=== PATIENT | male | born 1955 | race Hispanic/Latino ===

== ENCOUNTER 2017-07-12 06:55 | Inpatient (IN) | payer BC ==
[2017-07-08 10:55] VITALS: BMI 42.0
[2017-07-12 08:14] LABS: HEMATOCRIT 41.8 % (35.0-51.0); MEAN CELL VOLUME 93.2 fl (80.0-94.0); MEAN CORPUSCULAR HGB CONC 33.3 g/dL (33.0-37.0); RED CELL DISTRIBUTION WIDTH 14.3 % (11.5-14.5); WHITE BLOOD COUNT 7.5 K/uL (4.8-10.8)
[2017-07-12] MEDS ORDERED: Sodium Chloride 0.9% 20 ML IV ONE (08:21)
[2017-07-12] MEDS ORDERED: Thrombin Topical 5,000 IU Spray Kit ONE (08:21)
[2017-07-12] MEDS ORDERED: Absorbable Gelatin Sponge Size 100 ONE (08:21)
[2017-07-12 08:25] LABS: BLOOD UREA NITROGEN 22 mg/dl (9-20); CALCIUM 9.4 mg/dL (8.4-10.2); CARBON DIOXIDE 24 mmol/L (22-30); CHLORIDE 106 mmol/L (98-107); GFR AFRICAN-AMERICAN > 60; GLUCOSE,RANDOM 112 mg/dL (75-110); POTASSIUM 3.4 MMOL/L (3.6-5.0); SODIUM 143 mmol/l (132-148)
[2017-07-12] MEDS ORDERED: Propofol 10 mg/ml Inj (20 ML) ONE (08:39)
[2017-07-12] MEDS ORDERED: Etomidate 20 mg/10ml Inj IV ONE (08:40)
[2017-07-12] MEDS ORDERED: ePHEDrine 50 mg/ml Inj ONE (08:40)
[2017-07-12] MEDS ORDERED: Rocuronium 10 mg/ml (5 ml) ONE ×2 (08:40→10:25)
[2017-07-12] MEDS ORDERED: Midazolam 2 MG/2 ML VIAL ONE ×2 (08:40→09:53)
[2017-07-12] MEDS ORDERED: Succinylcholine 200 mg/10 ml Inj IV ONE (08:40)
[2017-07-12] MEDS ORDERED: Phenylephrine 10 mg/ml Inj ONE (08:40)
[2017-07-12 08:46] LABS: PARTIAL THROMBOPLASTIN TIME 30.5 Seconds (25.6-37.1)
[2017-07-12] MEDS ORDERED: Lactated Ringer's 1,000 ML IV ONE ×2 (09:00→11:40)
[2017-07-12] MEDS ORDERED: Morphine 1 mg/ml preservative-free Inj(Duramorph) ONE (09:14)
[2017-07-12] MEDS ORDERED: Sodium Chloride 0.9% 1,000 ML IV ONE ×3 (09:40→11:30)
[2017-07-12] MEDS ORDERED: Sodium Chloride 0.9% 500 ML IV ONE (09:40)
[2017-07-12] MEDS ORDERED: Sodium Chloride 0.9% 200 ML IV ONE (09:45)
[2017-07-12] MEDS ORDERED: Bacitracin 50,000 UNIT in SODIUM CHLORIDE 3,000 ML IR ONE (10:40)
[2017-07-12] MEDS: Bupivacaine 0.5% Inj(30mL) ONE ×2 (10:54→12:25)
[2017-07-12] MEDS: Morphine 1 mg/ml preservative-free Inj(Duramorph) ONE ×2 (10:55→12:25)
[2017-07-12] MEDS: EPINEPHrine 1 mg/ml (1:1000) Inj ONE ×2 (10:56→12:25)
[2017-07-12] MEDS ORDERED: Sodium Chloride 0.9% Inj (10mL) IV ONE ×2 (10:58→12:25)
[2017-07-12] MEDS ORDERED: Neostigmine Methylsulfate 2 MG/2 ML ML IV ONE (12:10)
[2017-07-12] MEDS ORDERED: Neostigmine Methylsulfate 3mg/3ml Syringe IV ONE (12:10)
--- NOTE | 2017-07-12 12:19 | PCM.SURG1 ---
<Alex Houston - Last Filed: 07/12/17 12:17> Surgeon's Initial Post Op Note - Surgeon's Notes Surgeon: Gaye Gandhi MD Hog Killer: Alex Houston PA-C; Ester Moscoso PA-C; Dr. Ga Beck Type of Anesthesia: General Endo Pre-Operative Diagnosis: Right hip severe osteoarthritis Operative Findings: see op report Post-Operative Diagnosis: same as pre-op dx Operation Performed: Right robotic assisted total hip replacement Specimen/Specimens Removed: right hip femoral head and soft tissue Estimated Blood Loss: EBL {In ML}: 350 Drains Used: Hemovac Date of Surgery/Procedure: 07/12/17 Time of Surgery/Procedure: 10:00 <Gaye Gandhi - Last Filed: 07/12/17 13:47> Surgeon's Initial Post Op Note - Surgeon's Notes Hog Killer: Dr. Sandra Beck
[2017-07-12] MEDS ORDERED: Albuterol 0.083% Inhal Sol (2.5 mg/3 mL) UD ONE (13:09)
[2017-07-12] MEDS ORDERED: Lactated Ringer's 1,000 ML IV SCH (13:30)
--- NOTE | 2017-07-12 16:06 | RAD ---
PROCEDURE: Right Hip with pelvis Radiographs. HISTORY: s/p RTHR COMPARISON: None. FINDINGS: BONES: A status post right total hip replacement with adequate positioning of prosthetic devices at the acetabular and proximal femoral regions. No fracture. JOINTS: Status post complete THR. SOFT TISSUES: Normal. OTHER FINDINGS: None. IMPRESSION: Status post right shoulder replacement. No dislocation or fracture appreciable.
[2017-07-12 17:43] LABS: BASO % 0.3 % (0.0-2.0); EOS # 0.1 K/uL (0.0-0.7); EOS % 0.4 % (0.0-4.0); HEMATOCRIT 38.7 % (35.0-51.0); LYMPH % 6.7 % (20.0-40.0); MEAN CELL VOLUME 94.2 fl (80.0-94.0); MEAN CORPUSCULAR HEMOGLOBIN 31.1 pg (27.0-31.0); MEAN CORPUSCULAR HGB CONC 33.1 g/dL (33.0-37.0); MEAN PLATELET VOLUME 8.6 fl (7.2-11.7); MONO # 1.1 K/uL (0.0-0.8); MONO % 7.3 % (0.0-10.0); NEUT # 12.6 K/uL (1.8-7.0); NEUT % 85.3 % (50.0-75.0); PLATELET COUNT 171 K/uL (130-400); RED CELL DISTRIBUTION WIDTH 14.6 % (11.5-14.5); WHITE BLOOD COUNT 14.8 K/uL (4.8-10.8)
[2017-07-12] MEDS ORDERED: ceFAZolin 1 GM in Sodium Chloride 0.9% 100 ML IVPB ONE (17:45)
[2017-07-12 19:11] LABS: NEUTROPHIL 81 % (42-75); TOTAL CELLS COUNTED 100
[2017-07-13] MEDS ORDERED: ceFAZolin 1 GM in Sodium Chloride 0.9% 100 ML IVPB ONE (01:45)
--- NOTE | 2017-07-13 04:17 | OP ---
OPERATION DATE: 07/12/2017 ATTENDING PHYSICIAN: Gaye Gandhi MD COURTESY BOOTH CASHIER: Sandra Beck MD. PREOPERATIVE DIAGNOSIS: Right hip osteoarthritis. POSTOPERATIVE DIAGNOSIS: Right hip osteoarthritis. PROCEDURE: Right total hip replacement. IMPLANTS: Merlyn 54 mm cup, size 4 high offset stem, 36 mm ceramic head with minus 5 neck length, a 10 degree lateralized polyethylene liner. ESTIMATED BLOOD LOSS: 300 mL. TYPE OF ANESTHESIA: General and spinal. COMPLICATIONS: None. HISTORY: The patient is a 62-year-old male with long standing history of right total hip replacement. He had failed the extensive conservative management. His x-ray had shown advanced osteoarthritis. After the failure of extensive conservative management, I had offered the patient an treatment option of total hip replacement. I reviewed the risk and benefits of the surgery with the patient in detail. The risk includes, but not limited to bleeding, infection, nerve vessel damage, continuous pain, blood loss, instability, dislocation, iatrogenic fracture, blood clots, need for further surgery, and even . The patient fully understood the risks and benefits and opted to proceed. He underwent necessary preoperative medical workup. Once medically cleared, he was scheduled for the procedure. DESCRIPTION OF PROCEDURE: On the day of the surgery, the patient was admitted to preoperative holding area. A laterality sheet was completed, confirming correct operative site. An informed consent was signed from the patient and the correct operative hip was marked. Afterwards, the patient was brought into the operating room table. He underwent general anesthesia. Afterwards, the patient was placed on a operating room table in lateral decubitus position. All the bony prominences were well padded and an axillary roll was also placed. The hip was draped and prepped in the standard sterile manner. Timeout was completed, confirming correct operative site. We proceeded with robotic assisted total hip replacement. Two pins were placed in the iliac crest to attach the antenna. Afterwards, we utilized a standard posterolateral approach. Using a #10 blade, a skin incision was made. The soft tissue dissection was taken down until the IT band fascia was identified and the IT band fascia was incised along with fibers. Next, the lead cast was structured and a short external rotator was exposed and the short external rotator was taken down along with the capsule and preserved for a later repair. Next, an additional checkpoint was placed on the greater trochanter and on top of the acetabular roof. Afterwards, the hip was dislocated. The proposed neck cut was made and the femur was broached to the templated preoperative plan. Next, the acetabulum was exposed. All the soft tissue, degenerative labrum, and the pulvinar was excised. Using the checkpoint, multiple checkpoints were registered to the robot for robotic-assisted reaming and cup placement. After the checkpoint was completed, a 54-mm reamer was used to ream the socket until the medial wall and afterwards using the robot, the 54-mm cup was placed along with one screw. The polyethylene liner was secured. Next, we broached the femoral canal into the appropriate size, a size 4 trial was found to be appropriate fit for this patient with high offset. A -5 femoral head was secured. The hip was reduced and taken to do the range of motion, was stable throughout the entire range of motion without impingement. Next, the hip was dislocated. The trial implants were removed from the femoral canal and a size 4 stem along with a 36 mm with -5 head was secured. The hip was reduced. Once again, taken to do the range of motion was found to be stable without any instability and leg length was also found to be appropriate. Finally, the wound was copiously irrigated. All the loose bodies were removed. The short external rotator were closed with two drill holes at the greater trochanter using pulse lavage solution. The wound was copiously irrigated. All the loose bodies were removed. Dr. Beck had assisted with the closure since the patient was obese and high risk for infection. The deep fascia was closed using #2 Monocryl sutures. Skin edges were brought together using 0 Vicryl and 2-0 Vicryl and skin was closed using Monocryl. Steri-Strip was applied. Sterile dressing was applied. The patient was extubated. He was transferred to the stretcher taken to the recovery room. He was placed in abduction pillow with posterior hip precautions and there were no complications of surgery. Dr. Sandra Beck is a board certified plastic surgeon who was present for the case. He assisted in patient's positioning, retraction of critical neurovascular structure and also along with complex closure. Gaye Gandhi MD [facility] # [id number] MTDD
[2017-07-13] MEDS ORDERED: Sodium Chloride 0.9% 1,000 ML IV SCH (04:45)
[2017-07-13 07:23] LABS: BASO % 0.4 % (0.0-2.0); EOS % 0.4 % (0.0-4.0); HEMATOCRIT 34.5 % (35.0-51.0); LYMPH # 1.1 K/uL (1.0-4.3); MEAN CELL VOLUME 94.1 fl (80.0-94.0); MEAN CORPUSCULAR HEMOGLOBIN 31.1 pg (27.0-31.0); MEAN PLATELET VOLUME 8.6 fl (7.2-11.7); MONO # 0.8 K/uL (0.0-0.8); MONO % 9.8 % (0.0-10.0); NEUT # 6.4 K/uL (1.8-7.0); NEUT % 76.4 % (50.0-75.0); RED CELL DISTRIBUTION WIDTH 14.2 % (11.5-14.5); WHITE BLOOD COUNT 8.4 K/uL (4.8-10.8)
[2017-07-13 07:33] LABS: CALCIUM 7.9 mg/dL (8.4-10.2); POTASSIUM 3.8 MMOL/L (3.6-5.0)
--- NOTE | 2017-07-13 08:56 | CP.PCM.PN ---
Subjective - Date & Time of Evaluation Date of Evaluation: 07/13/17 Time of Evaluation: 08:30 - Subjective Subjective: S/P Right robotic assisted total hip replacement Pt seen and examined at bedside, comfortable in bed Pt denies any current right hip pain, well controlled with pain meds Pt states he was able to urinate this am Pt denies any SOB, chest pain, N/V/D, numbness/tingling to RLE Objective - Vital Signs/Intake and Output Vital Signs (last 24 hours): Temp Pulse Resp BP Pulse Ox 98.6 F 87 18 120/79 94 L 07/13/17 08:15 07/13/17 08:15 07/13/17 08:15 07/13/17 08:15 07/13/17 08:15 Intake and Output: 07/13/17 07/13/17 06:59 18:59 Intake Total 2300 Output Total 500 Balance 1800 - Medications Medications: Current Medications Acetaminophen (Tylenol 325mg Tab) 325 mg PO Q4 PRN PRN Reason: pain1-3 Allopurinol (Zyloprim) 300 mg PO DAILY [facility] Alprazolam (Xanax) 0.5 mg PO Q8 PRN PRN Reason: Anxiety Last Admin: 07/13/17 00:00 Dose: 0.5 mg Celecoxib (Celebrex) 200 mg PO Q12 [facility] Last Admin: 07/12/17 21:55 Dose: 200 mg Hydromorphone HCl (Dilaudid) 0.5 mg IVP Q4 PRN PRN Reason: Pain, severe (8-10) Lactated Ringer's (Lactated Ringer's) 1,000 mls @ 80 mls/hr IV .[id number] [facility] Stop: 07/13/17 09:00 Sodium Chloride (Sodium Chloride 0.9%) 1,000 mls @ 999 mls/hr IV .Q1H1M [facility] Stop: 07/14/17 04:39 Last Admin: 07/13/17 05:10 Dose: 999 mls/hr Losartan Potassium (Cozaar) 100 mg PO DAILY [facility] Meperidine HCl (Demerol) 12.5 mg IVP Q5M PRN PRN Reason: Pain, severe (8-10) Metoprolol Tartrate (Lopressor) 50 mg PO Q12 [facility] Last Admin: 07/12/17 21:55 Dose: 50 mg Ondansetron HCl (Zofran Inj) 4 mg IVP Q6 PRN PRN Reason: Nausea/Vomiting Rivaroxaban (Xarelto) 20 mg PO QD5 [facility] PRN Reason: Protocol Rivaroxaban (Xarelto) 20 mg PO QD5 [facility] PRN Reason: Protocol Tamsulosin HCl (Flomax) 0.4 mg PO DAILY [facility] Tramadol HCl (Ultram) 50 mg PO Q4 PRN PRN Reason: pain4-6 - Labs Labs: 07/13/17 05:30 07/13/17 05:30 PT 10.6 Seconds (9.8-13.1) 07/12/17 08:05 INR 1.0 (0.9-1.2) 07/12/17 08:05 APTT 30.5 Seconds (25.6-37.1) 07/12/17 08:05 - Constitutional Appears: Well, No Acute Distress - Respiratory Exam Respiratory Exam: Clear to Ausculation Bilateral, NORMAL BREATHING PATTERN - Extremities Exam Additional comments: RLE: Hip dressing C/I, saturated proximally Hip abduction pillow in place Calves soft and nontender b/l Normal ROM at ankle Distal pulses wnl Assessment and Plan - Assessment and Plan (Free Text) Assessment: 62 yo M s/p right robotic assisted total hip replacement Plan: S/P right robotic assisted total hip replacement Abx to be stopped within 24hrs post op Pain Control DVT ppx- start xarelto today Incentive Spirometer Dressing to be changed today, change prn F/U labs Continue current management Discussed with Dr. Gandhi
--- NOTE | 2017-07-13 09:12 | CP.PCM.HP ---
History of Present Illness - History of Present Illness History of Present Illness: pt admitted s/p r hip replacement. no f/c, n/v/d. urinated this am. pain controlled. distal pms intact. no numbness/tingling. h/o htn, doing well on meds. Present on Admission - Present on Admission Any Indicators Present on Admission: No Review of Systems - Musculoskeletal Musculoskeletal: As Per HPI, Arthralgias Past Patient History - Past Medical History & Family History Past Medical History?: Yes - Past Social History Smoking Status: Former Smoker - CARDIAC Hx Cardiac Disorders: Yes Hx Hypercholesterolemia: Yes Hx Hypertension: Yes - PULMONARY Hx Respiratory Disorders: No - NEUROLOGICAL Hx Neurological Disorder: No - HEENT Hx HEENT Problems: No - RENAL Hx Chronic Kidney Disease: Yes Other/Comment: RIGHT KIDNEY STONE - ENDOCRINE/METABOLIC Hx Endocrine Disorders: No - HEMATOLOGICAL/ONCOLOGICAL Hx Blood Disorders: Yes Hx Bruising: Yes - INTEGUMENTARY Hx Dermatological Problems: No - MUSCULOSKELETAL/RHEUMATOLOGICAL Hx Musculoskeletal Disorders: Yes Hx Arthritis: Yes Hx Falls: No Hx Gout: Yes Other/Comment: LIMITED JOINT MOTION - GASTROINTESTINAL Hx Gastrointestinal Disorders: No - GENITOURINARY/GYNECOLOGICAL Hx Bladder Stone: Yes (RIGHT KIDNEY STONE) - PSYCHIATRIC Hx Psychophysiologic Disorder: No - SURGICAL HISTORY Hx Surgeries: Yes Hx Arthroscopy: Yes (RIGHT KNEE ARTHROSCOPY) Hx Orthopedic Surgery: Yes (rt knee 2 days ago) - ANESTHESIA Hx Anesthesia: Yes Hx Anesthesia Reactions: No Hx Malignant Hyperthermia: No Has any member of the family had a problem w/ anesthesia?: No Meds Allergies/Adverse Reactions: Allergies Allergy/AdvReac Type Severity Reaction Status Date / Time codeine Allergy RASH Verified 07/08/17 10:55 Physical Exam - Constitutional Appears: Well, Non-toxic, No Acute Distress - Head Exam Head Exam: ATRAUMATIC, NORMAL INSPECTION, NORMOCEPHALIC - Eye Exam Eye Exam: EOMI, Normal appearance, PERRL Pupil Exam: NORMAL ACCOMODATION, PERRL - ENT Exam ENT Exam: Mucous Membranes Moist, Normal Exam - Neck Exam Neck exam: Positive for: Normal Inspection - Respiratory Exam Respiratory Exam: Clear to Auscultation Bilateral, NORMAL BREATHING PATTERN - Cardiovascular Exam Cardiovascular Exam: REGULAR RHYTHM, RRR, +S1, +S2 - GI/Abdominal Exam GI & Abdominal Exam: Normal Bowel Sounds, Soft. absent: Tenderness - Extremities Exam Extremities exam: Positive for: full ROM, normal capillary refill, normal inspection, pedal pulses present - Back Exam Back exam: NORMAL INSPECTION - Neurological Exam Neurological exam: Alert, CN II-XII Intact, Normal Gait, Oriented x3, Reflexes Normal - Psychiatric Exam Psychiatric exam: Normal Affect, Normal Mood - Skin Skin Exam: Dry, Intact, Normal Color, Warm Results - Vital Signs Recent Vital Signs: Last Vital Signs Temp 98.6 F 07/13/17 08:15 Pulse 87 07/13/17 08:15 Resp 18 07/13/17 08:15 BP 120/79 07/13/17 08:15 Pulse Ox 94 L 07/13/17 08:15 - Labs Result Diagrams: 07/13/17 05:30 07/13/17 05:30 Labs: Laboratory Results - last 24 hr 07/12/17 07/12/17 07/12/17 07:30 09:00 17:24 WBC 14.8 H D RBC 4.11 L Hgb 12.8 Hct 38.7 MCV 94.2 H MCH 31.1 H MCHC 33.1 RDW 14.6 H Plt Count 171 MPV 8.6 Neut % (Auto) 85.3 H Lymph % (Auto) 6.7 L [place] % (Auto) 7.3 Eos % (Auto) 0.4 Baso % (Auto) 0.3 Neut # 12.6 H Lymph # 1.0 [place] # 1.1 H Eos # 0.1 Baso # 0.0 Neutrophils % (Manual) 81 H Band Neutrophils % 2 Lymphocytes % (Manual) 9 L Monocytes % (Manual) 8 Platelet Estimate Normal Hypochromasia (manual) Slight Sodium Potassium Chloride Carbon Dioxide Anion Gap BUN Creatinine Est GFR ( Amer) Est GFR (Non-Af Amer) Random Glucose Calcium Blood Type O POSITIVE Blood Type Confirm O POSITIVE Antibody Screen Negative Crossmatch See Detail BBK History Checked No verified bt 07/13/17 07/13/17 05:30 05:30 WBC 8.4 RBC 3.66 L Hgb 11.4 L Hct 34.5 L MCV 94.1 H MCH 31.1 H MCHC 33.0 RDW 14.2 Plt Count 174 MPV 8.6 Neut % (Auto) 76.4 H Lymph % (Auto) 13.0 L [place] % (Auto) 9.8 Eos % (Auto) 0.4 Baso % (Auto) 0.4 Neut # 6.4 Lymph # 1.1 [place] # 0.8 Eos # 0.0 Baso # 0.0 Neutrophils % (Manual) Band Neutrophils % Lymphocytes % (Manual) Monocytes % (Manual) Platelet Estimate Hypochromasia (manual) Sodium 135 Potassium 3.8 Chloride 104 Carbon Dioxide 22 Anion Gap 13 BUN 27 H Creatinine 1.5 Est GFR ( Amer) 57 Est GFR (Non-Af Amer) 47 Random Glucose 93 Calcium 7.9 L Blood Type Blood Type Confirm Antibody Screen Crossmatch BBK History Checked Assessment & Plan (1) Osteoarthritis of right hip Assessment and Plan: s/p tkr pain control pt/ot ortho emanuel Status: Acute (2) DVT prophylaxis Assessment and Plan: xarelto ambulation scd sarai e hose Status: Acute (3) HTN (hypertension) Assessment and Plan: home meds Status: Acute Decision To Admit - Pt Status Changed To: Hospital Disposition Of: Inpatient - Admit Certification Admit to Inpatient:: After my assessment, the patient will require hospitalization for at least two midnights. This is because of the severity of symptoms shown, intensity of services needed, and/or the medical risk in this patient being treated as an outpatient. - . Bed Request Type: Telemetry Admitting Physician: Malissa Urbina
[2017-07-13] MEDS: HYDROmorphone 0.5 mg/0.5 ml ISec IVP PRN (20:16)
[2017-07-14] MEDS: HYDROmorphone 0.5 mg/0.5 ml ISec IVP PRN (04:39)
[2017-07-14 05:47] LABS: BASO % 0.5 % (0.0-2.0); EOS # 0.1 K/uL (0.0-0.7); EOS % 0.8 % (0.0-4.0); HEMATOCRIT 33.1 % (35.0-51.0); LYMPH % 12.2 % (20.0-40.0); MEAN CELL VOLUME 93.1 fl (80.0-94.0); MEAN CORPUSCULAR HEMOGLOBIN 31.3 pg (27.0-31.0); MEAN CORPUSCULAR HGB CONC 33.6 g/dL (33.0-37.0); MEAN PLATELET VOLUME 8.6 fl (7.2-11.7); MONO # 0.8 K/uL (0.0-0.8); MONO % 9.9 % (0.0-10.0); NEUT # 6.6 K/uL (1.8-7.0); NEUT % 76.6 % (50.0-75.0); RED CELL DISTRIBUTION WIDTH 14.3 % (11.5-14.5); WHITE BLOOD COUNT 8.6 K/uL (4.8-10.8)
[2017-07-14 06:00] LABS: BLOOD UREA NITROGEN 21 mg/dl (9-20); CALCIUM 8.2 mg/dL (8.4-10.2); CARBON DIOXIDE 22 mmol/L (22-30); CHLORIDE 107 mmol/L (98-107); GFR AFRICAN-AMERICAN > 60; GLUCOSE,RANDOM 117 mg/dL (75-110); POTASSIUM 3.5 MMOL/L (3.6-5.0); SODIUM 138 mmol/l (132-148)
[2017-07-14] MEDS ORDERED: Potassium Chloride 20 mEq ER Tab PO ONE (06:12)
--- NOTE | 2017-07-14 07:51 | CP.PCM.PN ---
Subjective - Date & Time of Evaluation Date of Evaluation: 07/14/17 Time of Evaluation: 07:50 - Subjective Subjective: pt doing well, no distress. for tcu/emanuel today. no f/c, n/vd/. hgb stable pain controlled Objective - Vital Signs/Intake and Output Vital Signs (last 24 hours): Temp Pulse Resp BP Pulse Ox 98 F 96 H 19 132/84 95 07/14/17 04:49 07/14/17 04:49 07/14/17 04:49 07/14/17 04:49 07/14/17 04:49 Intake and Output: 07/14/17 07/14/17 06:59 18:59 Output Total 300 Balance -300 - Medications Medications: Current Medications Acetaminophen (Tylenol 325mg Tab) 325 mg PO Q4 PRN PRN Reason: pain1-3 Allopurinol (Zyloprim) 300 mg PO DAILY [facility] Last Admin: 07/13/17 09:51 Dose: 300 mg Alprazolam (Xanax) 0.5 mg PO Q8 PRN PRN Reason: Anxiety Last Admin: 07/13/17 21:57 Dose: 0.5 mg Celecoxib (Celebrex) 200 mg PO Q12 [facility] Last Admin: 07/13/17 21:55 Dose: 200 mg Hydromorphone HCl (Dilaudid) 0.5 mg IVP Q4 PRN PRN Reason: Pain, severe (8-10) Last Admin: 07/14/17 04:39 Dose: 0.5 mg Losartan Potassium (Cozaar) 100 mg PO DAILY [facility] Last Admin: 07/13/17 09:49 Dose: 100 mg Metoprolol Tartrate (Lopressor) 50 mg PO Q12 [facility] Last Admin: 07/13/17 21:55 Dose: 50 mg Ondansetron HCl (Zofran Inj) 4 mg IVP Q6 PRN PRN Reason: Nausea/Vomiting Rivaroxaban (Xarelto) 20 mg PO QD5 [facility] PRN Reason: Protocol Last Admin: 07/13/17 17:13 Dose: Not Given Tamsulosin HCl (Flomax) 0.4 mg PO DAILY [facility] Last Admin: 07/13/17 09:50 Dose: 0.4 mg Tramadol HCl (Ultram) 50 mg PO Q4 PRN PRN Reason: pain4-6 Last Admin: 07/13/17 12:38 Dose: 50 mg - Labs Labs: 07/14/17 04:45 07/14/17 04:45 PT 10.6 Seconds (9.8-13.1) 07/12/17 08:05 INR 1.0 (0.9-1.2) 07/12/17 08:05 APTT 30.5 Seconds (25.6-37.1) 07/12/17 08:05 - Constitutional Appears: Well, Non-toxic, No Acute Distress - Head Exam Head Exam: ATRAUMATIC, NORMAL INSPECTION, NORMOCEPHALIC - Eye Exam Eye Exam: EOMI, Normal appearance, PERRL Pupil Exam: NORMAL ACCOMODATION, PERRL - ENT Exam ENT Exam: Mucous Membranes Moist, Normal Exam - Neck Exam Neck Exam: Full ROM, Normal Inspection. absent: Lymphadenopathy - Respiratory Exam Respiratory Exam: Clear to Ausculation Bilateral, NORMAL BREATHING PATTERN - Cardiovascular Exam Cardiovascular Exam: REGULAR RHYTHM, RRR, +S1, +S2. absent: Murmur - GI/Abdominal Exam GI & Abdominal Exam: Soft, Normal Bowel Sounds. absent: Tenderness - Extremities Exam Extremities Exam: Full ROM, Normal Capillary Refill, Normal Inspection. absent : Joint Swelling, Pedal Edema - Back Exam Back Exam: NORMAL INSPECTION - Neurological Exam Neurological Exam: Alert, Awake, CN II-XII Intact, Normal Gait, Oriented x3 - Psychiatric Exam Psychiatric exam: Normal Affect, Normal Mood - Skin Skin Exam: Dry, Intact, Normal Color, Warm Assessment and Plan (1) Osteoarthritis of right hip Status: Acute (2) DVT prophylaxis Status: Acute (3) HTN (hypertension) Status: Acute - Assessment and Plan (Free Text) Assessment: (1) Osteoarthritis of right hip Assessment and Plan: s/p tkr pain control pt/ot ortho emanuel Status: Acute (2) DVT prophylaxis Assessment and Plan: xarelto ambulation scd sarai e hose Status: Acute (3) HTN (hypertension) Assessment and Plan: home meds Status: Acute
[2017-07-14] MEDS: Sodium Chloride 0.9% 1,000 ML IV SCH ×2 (12:55→20:42)
[2017-07-14] MEDS ORDERED: Lactulose 10 gm/15 ml Syrup PO PRN (14:07)
[2017-07-14 16:11] VITALS: O2SAT 95
[2017-07-15] MEDS: Sodium Chloride 0.9% 1,000 ML IV SCH (06:05)
[2017-07-15 07:03] LABS: BASO # 0.1 K/uL (0.0-0.2); BASO % 0.6 % (0.0-2.0); EOS # 0.1 K/uL (0.0-0.7); EOS % 1.5 % (0.0-4.0); HEMATOCRIT 31.1 % (35.0-51.0); LYMPH # 1.1 K/uL (1.0-4.3); LYMPH % 12.3 % (20.0-40.0); MEAN CELL VOLUME 93.4 fl (80.0-94.0); MEAN CORPUSCULAR HEMOGLOBIN 30.7 pg (27.0-31.0); MEAN CORPUSCULAR HGB CONC 32.9 g/dL (33.0-37.0); MEAN PLATELET VOLUME 9.1 fl (7.2-11.7); MONO # 0.8 K/uL (0.0-0.8); MONO % 8.8 % (0.0-10.0); NEUT # 6.6 K/uL (1.8-7.0); NEUT % 76.8 % (50.0-75.0); RED CELL DISTRIBUTION WIDTH 14.3 % (11.5-14.5); WHITE BLOOD COUNT 8.7 K/uL (4.8-10.8)
[2017-07-15 07:49] LABS: BLOOD UREA NITROGEN 16 mg/dl (9-20); CALCIUM 8.6 mg/dL (8.4-10.2); CARBON DIOXIDE 24 mmol/L (22-30); CHLORIDE 109 mmol/L (98-107); GFR AFRICAN-AMERICAN > 60; GLUCOSE,RANDOM 120 mg/dL (75-110); POTASSIUM 3.6 MMOL/L (3.6-5.0); SODIUM 141 mmol/l (132-148)
--- NOTE | 2017-07-15 09:00 | CP.PCM.PN ---
Subjective - Date & Time of Evaluation Date of Evaluation: 07/15/17 Time of Evaluation: 08:15 - Subjective Subjective: S/P Right robotic assisted total hip replacement POD#3 Pt seen and examined at bedside, comfortable in bed Pt c/o mild right hip pain Pt denies any SOB, chest pain, N/V/D, numbness/tingling RLE Pt states he has not yet had BM Objective - Vital Signs/Intake and Output Vital Signs (last 24 hours): Temp Pulse Resp BP Pulse Ox 97.6 F 89 20 145/87 95 07/15/17 08:00 07/15/17 08:00 07/15/17 08:00 07/15/17 08:00 07/15/17 08:00 Intake and Output: 07/15/17 07/15/17 06:59 18:59 Output Total 250 Balance -250 - Medications Medications: Current Medications Acetaminophen (Tylenol 325mg Tab) 325 mg PO Q4 PRN PRN Reason: pain1-3 Allopurinol (Zyloprim) 300 mg PO DAILY [facility] Last Admin: 07/14/17 09:41 Dose: 300 mg Alprazolam (Xanax) 0.5 mg PO Q8 PRN PRN Reason: Anxiety Last Admin: 07/14/17 20:51 Dose: 0.5 mg Celecoxib (Celebrex) 200 mg PO Q12 [facility] Last Admin: 07/14/17 20:51 Dose: 200 mg Docusate Sodium (Colace) 100 mg PO BID [facility] Last Admin: 07/14/17 17:33 Dose: 100 mg Hydromorphone HCl (Dilaudid) 2 mg PO Q4 PRN PRN Reason: Pain, severe (8-10) Last Admin: 07/15/17 06:07 Dose: 2 mg Sodium Chloride (Sodium Chloride 0.9%) 1,000 mls @ 120 mls/hr IV .Q8H20M [facility] Stop: 07/15/17 11:54 Last Admin: 07/15/17 06:05 Dose: Not Given Lactulose (Enulose) 10 gm PO DAILY PRN PRN Reason: Constipation Losartan Potassium (Cozaar) 100 mg PO DAILY [facility] Last Admin: 07/14/17 09:40 Dose: 100 mg Metoprolol Tartrate (Lopressor) 50 mg PO Q12 [facility] Last Admin: 07/14/17 20:51 Dose: 50 mg Ondansetron HCl (Zofran Inj) 4 mg IVP Q6 PRN PRN Reason: Nausea/Vomiting Rivaroxaban (Xarelto) 20 mg PO QD5 [facility] PRN Reason: Protocol Last Admin: 07/14/17 17:34 Dose: 20 mg Tamsulosin HCl (Flomax) 0.4 mg PO DAILY [facility] Last Admin: 07/14/17 09:41 Dose: 0.4 mg Tramadol HCl (Ultram) 50 mg PO Q4 PRN PRN Reason: Pain, moderate (4-7) - Labs Labs: 07/15/17 05:40 07/15/17 05:40 PT 10.6 Seconds (9.8-13.1) 07/12/17 08:05 INR 1.0 (0.9-1.2) 07/12/17 08:05 APTT 30.5 Seconds (25.6-37.1) 07/12/17 08:05 - Constitutional Appears: Well, No Acute Distress - Respiratory Exam Respiratory Exam: Clear to Ausculation Bilateral, NORMAL BREATHING PATTERN - Cardiovascular Exam Cardiovascular Exam: REGULAR RHYTHM, RRR - Extremities Exam Additional comments: RLE: Hip dressing C/D/I Hip abduction pillow in place Calves soft anfd nontender b/l N/V intact distally Distal pulses wnl Assessment and Plan - Assessment and Plan (Free Text) Assessment: 62 yo M s/p right robotic assisted total hip replacement POD#3 Plan: 62 yo M s/p right robotic assisted total hip replacement POD#3 Pain Control DVT ppx PT/OT WBAT RLE Continue current management Colace/milk of magnesia/adjust meds prn for constipation Discussed with Dr. Gandhi
--- NOTE | 2017-07-15 11:56 | CP.PCM.DIS ---
Provider - Provider Date of Admission: 07/12/17 13:20 Attending physician: Mike Colorado DNP, [employer] Primary care physician: Samantha Bangura MD Time Spent in preparation of Discharge (in minutes): 15 Diagnosis - Discharge Diagnosis (1) Osteoarthritis of right hip Status: Acute (2) DVT prophylaxis Status: Acute (3) HTN (hypertension) Status: Acute Hospital Course - Lab Results Lab Results: Most Recent Lab Values WBC 8.7 K/uL (4.8-10.8) 07/15/17 05:40 RBC 3.33 Mil/uL (4.40-5.90) L 07/15/17 05:40 Hgb 10.2 g/dL (12.0-18.0) L 07/15/17 05:40 Hct 31.1 % (35.0-51.0) L 07/15/17 05:40 MCV 93.4 fl (80.0-94.0) 07/15/17 05:40 MCH 30.7 pg (27.0-31.0) 07/15/17 05:40 MCHC 32.9 g/dL (33.0-37.0) L 07/15/17 05:40 RDW 14.3 % (11.5-14.5) 07/15/17 05:40 Plt Count 174 K/uL (130-400) 07/15/17 05:40 MPV 9.1 fl (7.2-11.7) 07/15/17 05:40 Neut % (Auto) 76.8 % (50.0-75.0) H 07/15/17 05:40 Lymph % (Auto) 12.3 % (20.0-40.0) L 07/15/17 05:40 [place] % (Auto) 8.8 % (0.0-10.0) 07/15/17 05:40 Eos % (Auto) 1.5 % (0.0-4.0) 07/15/17 05:40 Baso % (Auto) 0.6 % (0.0-2.0) 07/15/17 05:40 Neut # 6.6 K/uL (1.8-7.0) 07/15/17 05:40 Lymph # 1.1 K/uL (1.0-4.3) 07/15/17 05:40 [place] # 0.8 K/uL (0.0-0.8) 07/15/17 05:40 Eos # 0.1 K/uL (0.0-0.7) 07/15/17 05:40 Baso # 0.1 K/uL (0.0-0.2) 07/15/17 05:40 Neutrophils % (Manual) 81 % (42-75) H 07/12/17 17:24 Band Neutrophils % 2 % (0-2) 07/12/17 17:24 Lymphocytes % (Manual) 9 % (20-50) L 07/12/17 17:24 Monocytes % (Manual) 8 % (0-10) 07/12/17 17:24 Platelet Estimate Normal (NORMAL) 07/12/17 17:24 Hypochromasia (manual) Slight 07/12/17 17:24 PT 10.6 Seconds (9.8-13.1) 07/12/17 08:05 INR 1.0 (0.9-1.2) 07/12/17 08:05 APTT 30.5 Seconds (25.6-37.1) 07/12/17 08:05 Sodium 141 mmol/l (132-148) 07/15/17 05:40 Potassium 3.6 MMOL/L (3.6-5.0) 07/15/17 05:40 Chloride 109 mmol/L (98-107) H 07/15/17 05:40 Carbon Dioxide 24 mmol/L (22-30) 07/15/17 05:40 Anion Gap 12 (10-20) 07/15/17 05:40 BUN 16 mg/dl (9-20) 07/15/17 05:40 Creatinine 1.0 mg/dL (0.8-1.5) 07/15/17 05:40 Est GFR ( Amer) > 60 07/15/17 05:40 Est GFR (Non-Af Amer) > 60 07/15/17 05:40 Random Glucose 120 mg/dL (75-110) H 07/15/17 05:40 Calcium 8.6 mg/dL (8.4-10.2) 07/15/17 05:40 Blood Type O POSITIVE 07/12/17 07:30 Blood Type Confirm O POSITIVE 07/12/17 09:00 Antibody Screen Negative 07/12/17 07:30 Crossmatch See Detail 07/12/17 07:30 BBK History Checked No verified bt 07/12/17 07:30 Discharge Exam - Head Exam Head Exam: ATRAUMATIC, NORMAL INSPECTION, NORMOCEPHALIC - Eye Exam Eye Exam: EOMI, Normal appearance, PERRL Pupil Exam: NORMAL ACCOMODATION, PERRL - Respiratory Exam Respiratory Exam: Clear to PA & Lateral, NORMAL BREATHING PATTERN, UNREMARKABLE - Cardiovascular Exam Cardiovascular Exam: REGULAR RHYTHM, RRR, +S1, +S2 - GI/Abdominal Exam GI & Abdominal Exam: Normal Bowel Sounds, Soft, Unremarkable - Extremities Exam Extremities exam: full ROM, normal capillary refill, normal inspection, pedal pulses present - Back Exam Back exam: FULL ROM - Neurological Exam Neurological exam: Alert, CN II-XII Intact, Normal Gait, Oriented x3, Reflexes Normal - Psychiatric Exam Psychiatric exam: Normal Affect, Normal Mood - Skin Skin Exam: Dry, Intact, Normal Color, Warm Discharge Plan - Follow Up Plan Condition: GOOD Disposition: REHAB FACILITY/REHAB UNIT Additional Instructions: pt doing well, w/o dizziness/lightheaded ness today. no f/c, n/v/d. for dc to tcu pain controlled final dx-left hip oa s/p thr will f/u there and meds per med rec Referrals: Samantha Bangura MD [Primary Care Provider] -
[2017-07-15] MEDS ORDERED: Influenza Vaccine 18yr & older 0.5 ML/45 MCG SYR IM ONE (12:39)
[2017-07-15] MEDS ORDERED: Pneumococcal 23-Valent Vaccine IM ONE (12:39)
[2017-07-15 12:54] VITALS: BP 114/72; PULSE 99; RESP 18; TEMP 98.2
--- NOTE | 2017-07-18 10:31 | CON ---
DATE: 07/12/2017 INTRAOPERATIVE CONSULTATION This is a 62-year-old male with multiple medical problems was consulted on by Dr. Gandhi of orthopedics for wound closure intraoperatively while he was going under right total hip replacement. HISTORY OF PRESENT ILLNESS: This is a morbidly obese 62-year-old male with the past medical history of atrial fibrillation, hypertension, high cholesterol, COPD who is at high risk for wound dehiscence and essentially infected right total hip prosthesis. Intraoperatively, Dr. Gandhi who has done the right total hip arthroplasty consulted me for wound closure. I came in to the operating room and assisted Dr. Huizar for his portion of the operation. After he was done closing the deep fascia over the total hip replacement I was left on with the 28 cm wound. I explained to Dr. Gandhi, I would debride some of the irregular skin edges which were due to retraction and I closed those layers and closely monitor wound since the patient is at a high risk for wound problems. Sandra Beck MD
--- NOTE | 2017-07-18 18:46 | OP ---
PROCEDURE DATE: 07/12/2017 PREOPERATIVE DIAGNOSES: Right hip osteoarthritis/degenerative joint disease. POSTOPERATIVE DIAGNOSES: Right hip osteoarthritis/degenerative joint disease. PROCEDURE: Complex repair of 28 cm right hip open wound. TYPE OF ANESTHESIA: General anesthesia. INDICATIONS FOR THE PROCEDURE: As follows; please refer to my separately dictated intraoperative consultation. DESCRIPTION OF PROCEDURE: Please refer to Dr. Gaye Gandhi's dictation for his total hip arthroplasty which I assisted him, when he was done closing the deep fascia, I was left with the 28 cm wound. The wound was thoroughly irrigated with normal saline and hemostasis was achieved with electrocautery. Some of the irregular skin edges which were devitalized skin from retraction was debrided with #15 scalpel. I then underlying skin to take the tension off the wound. I then aligned up and approximated Vanessa's fascia in interrupted fashion with 0 Vicryl sutures. Aligned and approximated the deep dermis in interrupted fashion and 2-0 Vicryl sutures. I then closed the subcuticular layer with a running 3-0 Monocryl suture. After doing this the 28 cm wound was on minimal tension and there was good capillary refill. I then placed Aquacel dressing on top of this. The patient was then activated and awaken from anesthesia and transferred to recovery room in stable condition. FINDINGS: As far as my part of the operation; as above. COMPLICATIONS: None. CONDITION: Stable. DRAINS: None. ESTIMATED BLOOD LOSS: Minimal. Sandra Beck MD
== END 2017-07-15 14:25 | DRG 470 ==
LOC: H.OPSURG 06:55 → H.TEL 13:20 → H.OPSURG 15:48
PROVIDERS: ADMIT Nurse Practitioner Adult Health; ATTEND Nurse Practitioner Adult Health
PROC: 8E0Y0CZ Robotic Assisted Procedure of Lower Extremity, Open Approach (ICD-10-PCS; 2017-07-12)
PROC: 0SR904Z Replacement of Right Hip Joint with Ceramic on Polyethylene Synthetic Substitute, Open Approach (ICD-10-PCS; principal; 2017-07-12 09:00)
PROC: 3E0234Z Introduction of Serum, Toxoid and Vaccine into Muscle, Percutaneous Approach (ICD-10-PCS; 2017-07-15)
DX: M16.11 Unilateral primary osteoarthritis, right hip (principal); Z68.41 Body mass index [BMI] 40.0-44.9, adult; I10 Essential (primary) hypertension; E66.01 Morbid (severe) obesity due to excess calories; Z23 Encounter for immunization; Z88.6 Allergy status to analgesic agent; Z87.891 Personal history of nicotine dependence

== ENCOUNTER 2017-07-15 13:47 | Inpatient (IN) | payer BC ==
[2017-07-15 14:45] VITALS: BMI 45.1
[2017-07-15] MEDS ORDERED: Tuberculin 5 Units/0.1 ml Inj ID ONE (15:10)
--- NOTE | 2017-07-16 08:27 | CP.PCM.HP ---
History of Present Illness - History of Present Illness History of Present Illness: pt doing well on tcu no lightheadedness or dizziness. pain controlled no f/c, n/v/d am labs pending. for continued pt/ot Present on Admission - Present on Admission Any Indicators Present on Admission: No Review of Systems - Musculoskeletal Musculoskeletal: As Per HPI, Arthralgias Past Patient History - Past Medical History & Family History Past Medical History?: Yes - Past Social History Smoking Status: Former Smoker - CARDIAC Hx Cardiac Disorders: Yes Hx Atrial Fibrillation: Yes Hx Hypercholesterolemia: Yes Hx Hypertension: Yes - PULMONARY Hx Chronic Obstructive Pulmonary Disease (COPD): Yes - NEUROLOGICAL Hx Neurological Disorder: No - HEENT Hx HEENT Problems: No - RENAL Hx Chronic Kidney Disease: Yes Other/Comment: RIGHT KIDNEY STONE - ENDOCRINE/METABOLIC Hx Endocrine Disorders: No - HEMATOLOGICAL/ONCOLOGICAL Hx Blood Disorders: Yes Hx AIDS: No Hx Bruising: Yes Hx Human Immunodeficiency Virus (HIV): No - INTEGUMENTARY Hx Dermatological Problems: No - MUSCULOSKELETAL/RHEUMATOLOGICAL Hx Arthritis: Yes Hx Falls: No Hx Gout: Yes - GASTROINTESTINAL Hx Gastrointestinal Disorders: No - GENITOURINARY/GYNECOLOGICAL Hx Bladder Stone: Yes (RIGHT KIDNEY STONE) - PSYCHIATRIC Hx Psychophysiologic Disorder: No Hx Substance Use: No - SURGICAL HISTORY Hx Surgeries: Yes Hx Arthroscopy: Yes (RIGHT KNEE ARTHROSCOPYx2) Hx Orthopedic Surgery: Yes (rt knee) - ANESTHESIA Hx Anesthesia: Yes Hx Anesthesia Reactions: No Hx Malignant Hyperthermia: No Meds Allergies/Adverse Reactions: Allergies Allergy/AdvReac Type Severity Reaction Status Date / Time codeine Allergy RASH Verified 07/15/17 14:44 Physical Exam - Constitutional Appears: Well, Non-toxic, No Acute Distress - Head Exam Head Exam: ATRAUMATIC, NORMAL INSPECTION, NORMOCEPHALIC - Eye Exam Eye Exam: EOMI, Normal appearance, PERRL Pupil Exam: NORMAL ACCOMODATION, PERRL - ENT Exam ENT Exam: Mucous Membranes Moist, Normal Exam - Neck Exam Neck exam: Positive for: Normal Inspection - Respiratory Exam Respiratory Exam: Clear to Auscultation Bilateral, NORMAL BREATHING PATTERN - Cardiovascular Exam Cardiovascular Exam: REGULAR RHYTHM, RRR, +S1, +S2 - GI/Abdominal Exam GI & Abdominal Exam: Normal Bowel Sounds, Soft. absent: Tenderness - Extremities Exam Extremities exam: Positive for: full ROM, normal capillary refill, normal inspection, pedal pulses present - Back Exam Back exam: NORMAL INSPECTION - Neurological Exam Neurological exam: Alert, CN II-XII Intact, Normal Gait, Oriented x3, Reflexes Normal - Psychiatric Exam Psychiatric exam: Normal Affect, Normal Mood - Skin Skin Exam: Dry, Intact, Normal Color, Warm Results - Vital Signs Recent Vital Signs: Last Vital Signs Temp 97.9 F 07/15/17 22:34 Pulse 88 07/15/17 22:24 Resp 20 07/15/17 22:34 BP 126/60 07/15/17 22:34 Pulse Ox 95 07/15/17 22:34 Assessment & Plan (1) DVT prophylaxis Assessment and Plan: scd and ae hose eliquis ambulation Status: Acute (2) HTN (hypertension) Assessment and Plan: cont home meds hold sbp less than 100 Status: Acute (3) Osteoarthritis of right hip Assessment and Plan: pt/ot physiatry pain control ortho Status: Acute Decision To Admit - Pt Status Changed To: Hospital Disposition Of: Inpatient - Admit Certification Admit to Inpatient:: After my assessment, the patient will require hospitalization for at least two midnights. This is because of the severity of symptoms shown, intensity of services needed, and/or the medical risk in this patient being treated as an outpatient. - . Bed Request Type: Transitional Care Unit Admitting Physician: Malissa Urbina
[2017-07-16 10:38] LABS: BASO # 0.1 K/uL (0.0-0.2); EOS # 0.2 K/uL (0.0-0.7); HEMATOCRIT 31.5 % (35.0-51.0); LYMPH # 1.1 K/uL (1.0-4.3); LYMPH % 15.4 % (20.0-40.0); MEAN CELL VOLUME 93.7 fl (80.0-94.0); MEAN CORPUSCULAR HEMOGLOBIN 31.4 pg (27.0-31.0); MEAN CORPUSCULAR HGB CONC 33.5 g/dL (33.0-37.0); MEAN PLATELET VOLUME 8.7 fl (7.2-11.7); MONO # 0.5 K/uL (0.0-0.8); MONO % 6.8 % (0.0-10.0); NEUT # 5.4 K/uL (1.8-7.0); NEUT % 73.8 % (50.0-75.0); NRBC % 0.1 % (0.0-0.0); RED CELL DISTRIBUTION WIDTH 14.5 % (11.5-14.5); WHITE BLOOD COUNT 7.3 K/uL (4.8-10.8)
[2017-07-16 11:03] LABS: ALB/GLOB RATIO 1.3 (1.0-2.1); ALKALINE PHOSPHATASE 64 U/L (38-126); ALT/SGPT 35 U/L (21-72); AST/SGOT 26 U/L (17-59); BILIRUBIN,TOTAL 0.8 mg/dl (0.2-1.3); BLOOD UREA NITROGEN 18 mg/dl (9-20); CALCIUM 9.6 mg/dL (8.4-10.2); CARBON DIOXIDE 24 mmol/L (22-30); CHLORIDE 107 mmol/L (98-107); GFR AFRICAN-AMERICAN > 60; GLUCOSE,RANDOM 133 mg/dL (75-110); POTASSIUM 3.5 MMOL/L (3.6-5.0); SODIUM 143 mmol/l (132-148); TOTAL PROTEIN 6.5 G/DL (6.3-8.2)
[2017-07-16 11:45] LABS: PARTIAL THROMBOPLASTIN TIME 33.2 Seconds (25.6-37.1)
[2017-07-16] MEDS ORDERED: Potassium Chloride 20 mEq ER Tab PO ONE (11:48)
--- NOTE | 2017-07-18 07:25 | CP.PCM.PN ---
Subjective - Date & Time of Evaluation Date of Evaluation: 07/18/17 Time of Evaluation: 07:25 - Subjective Subjective: doingn well, no distress. nof /c, n/v/d. pain controlled distla pms intact. Objective - Vital Signs/Intake and Output Vital Signs (last 24 hours): Temp Pulse Resp BP Pulse Ox 99.1 F 95 H 20 135/92 H 96 07/17/17 21:07 07/17/17 21:07 07/17/17 21:07 07/17/17 21:07 07/17/17 21:07 - Medications Medications: Current Medications Acetaminophen (Tylenol 325mg Tab) 325 mg PO Q4 PRN PRN Reason: pain1-3 Allopurinol (Zyloprim) 300 mg PO DAILY [facility] Last Admin: 07/17/17 09:03 Dose: 300 mg Alprazolam (Xanax) 0.5 mg PO Q8 PRN PRN Reason: Anxiety Last Admin: 07/18/17 00:13 Dose: 0.5 mg Celecoxib (Celebrex) 200 mg PO Q12 [facility] Last Admin: 07/17/17 20:01 Dose: 200 mg Docusate Sodium (Colace) 100 mg PO BID [facility] Last Admin: 07/17/17 16:56 Dose: 100 mg Hydromorphone HCl (Dilaudid) 2 mg PO Q4 PRN PRN Reason: Pain, severe (8-10) Last Admin: 07/18/17 04:19 Dose: 2 mg Lactulose (Enulose) 10 gm PO DAILY PRN PRN Reason: Constipation Losartan Potassium (Cozaar) 100 mg PO DAILY [facility] Last Admin: 07/17/17 09:03 Dose: 100 mg Metoprolol Tartrate (Lopressor) 50 mg PO Q12 [facility] Last Admin: 07/17/17 20:01 Dose: 50 mg Rivaroxaban (Xarelto) 20 mg PO DAILY@1700 [facility] PRN Reason: Protocol Last Admin: 07/17/17 16:56 Dose: 20 mg Tamsulosin HCl (Flomax) 0.4 mg PO DAILY [facility] Last Admin: 07/17/17 09:03 Dose: 0.4 mg Tramadol HCl (Ultram) 50 mg PO Q4 PRN PRN Reason: Pain, moderate (4-7) - Labs Labs: 07/16/17 10:10 07/16/17 10:10 PT 13.4 Seconds (9.8-13.1) H 07/16/17 10:10 INR 1.3 (0.9-1.2) H 07/16/17 10:10 APTT 33.2 Seconds (25.6-37.1) 07/16/17 10:10 - Constitutional Appears: Well, Non-toxic, No Acute Distress - Head Exam Head Exam: ATRAUMATIC, NORMAL INSPECTION, NORMOCEPHALIC - Eye Exam Eye Exam: EOMI, Normal appearance, PERRL Pupil Exam: NORMAL ACCOMODATION, PERRL - ENT Exam ENT Exam: Mucous Membranes Moist, Normal Exam - Neck Exam Neck Exam: Full ROM, Normal Inspection. absent: Lymphadenopathy - Respiratory Exam Respiratory Exam: Clear to Ausculation Bilateral, NORMAL BREATHING PATTERN - Cardiovascular Exam Cardiovascular Exam: REGULAR RHYTHM, RRR, +S1, +S2. absent: Murmur - GI/Abdominal Exam GI & Abdominal Exam: Soft, Normal Bowel Sounds. absent: Tenderness - Extremities Exam Extremities Exam: Full ROM, Normal Capillary Refill, Normal Inspection. absent : Joint Swelling, Pedal Edema - Back Exam Back Exam: NORMAL INSPECTION - Neurological Exam Neurological Exam: Alert, Awake, CN II-XII Intact, Normal Gait, Oriented x3 - Psychiatric Exam Psychiatric exam: Normal Affect, Normal Mood - Skin Skin Exam: Dry, Intact, Normal Color, Warm Assessment and Plan (1) DVT prophylaxis Status: Acute (2) HTN (hypertension) Status: Acute (3) Osteoarthritis of right hip Status: Acute - Assessment and Plan (Free Text) Assessment: (1) DVT prophylaxis Assessment and Plan: scd and ae hose eliquis ambulation Status: Acute (2) HTN (hypertension) Assessment and Plan: cont home meds hold sbp less than 100 Status: Acute (3) Osteoarthritis of right hip Assessment and Plan: pt/ot physiatry pain control ortho Status: Acute
[2017-07-18] MEDS: Lactulose 10 gm/15 ml Syrup PO PRN (08:56)
[2017-07-19] MEDS: Lactulose 10 gm/15 ml Syrup PO PRN (08:54)
--- NOTE | 2017-07-19 20:54 | CP.PCM.CON ---
History of Present Illness - History of Present Illness History of Present Illness: 62 year old male with hip surgery admitted to TCU Review of Systems - Musculoskeletal Musculoskeletal: Abnormal Gait, Muscle Weakness Past Patient History - Past Medical History & Family History Past Medical History?: Yes - Past Social History Smoking Status: Former Smoker - CARDIAC Hx Cardiac Disorders: Yes Hx Atrial Fibrillation: Yes Hx Hypercholesterolemia: Yes Hx Hypertension: Yes - PULMONARY Hx Chronic Obstructive Pulmonary Disease (COPD): Yes - NEUROLOGICAL Hx Neurological Disorder: No - HEENT Hx HEENT Problems: No - RENAL Hx Chronic Kidney Disease: Yes Other/Comment: RIGHT KIDNEY STONE - ENDOCRINE/METABOLIC Hx Endocrine Disorders: No - HEMATOLOGICAL/ONCOLOGICAL Hx Blood Disorders: Yes Hx AIDS: No Hx Bruising: Yes Hx Human Immunodeficiency Virus (HIV): No - INTEGUMENTARY Hx Dermatological Problems: No - MUSCULOSKELETAL/RHEUMATOLOGICAL Hx Arthritis: Yes Hx Falls: No Hx Gout: Yes - GASTROINTESTINAL Hx Gastrointestinal Disorders: No - GENITOURINARY/GYNECOLOGICAL Hx Bladder Stone: Yes (RIGHT KIDNEY STONE) - PSYCHIATRIC Hx Psychophysiologic Disorder: No Hx Substance Use: No - SURGICAL HISTORY Hx Surgeries: Yes Hx Arthroscopy: Yes (RIGHT KNEE ARTHROSCOPYx2) Hx Orthopedic Surgery: Yes (rt knee) - ANESTHESIA Hx Anesthesia: Yes Hx Anesthesia Reactions: No Hx Malignant Hyperthermia: No Meds Allergies/Adverse Reactions: Allergies Allergy/AdvReac Type Severity Reaction Status Date / Time codeine Allergy RASH Verified 07/15/17 14:44 - Medications Medications: Current Medications Acetaminophen (Tylenol 325mg Tab) 325 mg PO Q4 PRN PRN Reason: pain1-3 Allopurinol (Zyloprim) 300 mg PO DAILY [facility] Last Admin: 07/19/17 08:53 Dose: 300 mg Alprazolam (Xanax) 0.5 mg PO Q8 PRN PRN Reason: Anxiety Last Admin: 07/18/17 22:47 Dose: 0.5 mg Celecoxib (Celebrex) 200 mg PO Q12 [facility] Last Admin: 07/19/17 08:53 Dose: 200 mg Docusate Sodium (Colace) 100 mg PO BID [facility] Last Admin: 07/19/17 16:41 Dose: 100 mg Hydromorphone HCl (Dilaudid) 2 mg PO Q4 PRN PRN Reason: Pain, severe (8-10) Last Admin: 07/19/17 15:28 Dose: 2 mg Lactulose (Enulose) 10 gm PO DAILY PRN PRN Reason: Constipation Last Admin: 07/19/17 08:54 Dose: 10 gm Losartan Potassium (Cozaar) 100 mg PO DAILY [facility] Last Admin: 07/19/17 08:53 Dose: 100 mg Metoprolol Tartrate (Lopressor) 50 mg PO Q12 [facility] Last Admin: 07/19/17 08:52 Dose: 50 mg Rivaroxaban (Xarelto) 20 mg PO DAILY@1700 [facility] PRN Reason: Protocol Last Admin: 07/19/17 16:41 Dose: 20 mg Tamsulosin HCl (Flomax) 0.4 mg PO DAILY [facility] Last Admin: 07/19/17 08:53 Dose: 0.4 mg Tramadol HCl (Ultram) 50 mg PO Q4 PRN PRN Reason: Pain, moderate (4-7) Physical Exam - Head Exam Head Exam: ATRAUMATIC, NORMAL INSPECTION, NORMOCEPHALIC - Eye Exam Eye Exam: EOMI, Normal appearance - ENT Exam ENT Exam: Mucous Membranes Moist, Normal Exam - Neck Exam Neck exam: Positive for: Normal Inspection - Respiratory Exam Respiratory Exam: Clear to Auscultation Bilateral, NORMAL BREATHING PATTERN - Cardiovascular Exam Cardiovascular Exam: REGULAR RHYTHM - GI/Abdominal Exam GI & Abdominal Exam: Normal Bowel Sounds - Rectal Exam Rectal Exam: NORMAL INSPECTION - Exam External exam: NORMAL EXTERNAL EXAM - Extremities Exam Extremities exam: Positive for: normal inspection - Neurological Exam Neurological exam: Alert, Oriented x3 Additional comments: right leg weakness - Psychiatric Exam Psychiatric exam: Normal Affect - Skin Skin Exam: Dry, Normal Color Results - Vital Signs Recent Vital Signs: Last Vital Signs Temp 97.9 F 07/19/17 17:21 Pulse 97 H 07/19/17 17:21 Resp 20 07/19/17 17:21 BP 134/96 H 07/19/17 17:21 Pulse Ox 96 07/19/17 17:21 - Labs Result Diagrams: 07/16/17 10:10 07/16/17 10:10 Assessment & Plan (1) DVT prophylaxis Status: Acute (2) HTN (hypertension) Status: Acute (3) Osteoarthritis of right hip Assessment and Plan: plan for physical and occupational therapy swelling of the right leg Rule out DVT covering for Dr levin Status: Acute (4) Renal colic on right side Status: Acute
--- NOTE | 2017-07-20 08:40 | CP.PCM.PN ---
Subjective - Date & Time of Evaluation Date of Evaluation: 07/20/17 Time of Evaluation: 08:38 - Subjective Subjective: pt doing well, no pain distress/sob. no f/c, n/v/d doing well w/ pt/ot has r knee area swelling, had negative dvt study. Objective - Vital Signs/Intake and Output Vital Signs (last 24 hours): Temp Pulse Resp BP Pulse Ox 97.9 F 94 H 20 143/71 100 07/20/17 07:53 07/20/17 07:53 07/20/17 07:53 07/20/17 07:53 07/20/17 07:53 - Medications Medications: Current Medications Acetaminophen (Tylenol 325mg Tab) 325 mg PO Q4 PRN PRN Reason: pain1-3 Allopurinol (Zyloprim) 300 mg PO DAILY [facility] Last Admin: 07/19/17 08:53 Dose: 300 mg Alprazolam (Xanax) 0.5 mg PO Q8 PRN PRN Reason: Anxiety Last Admin: 07/20/17 00:30 Dose: 0.5 mg Celecoxib (Celebrex) 200 mg PO Q12 [facility] Last Admin: 07/19/17 20:56 Dose: 200 mg Docusate Sodium (Colace) 100 mg PO BID [facility] Last Admin: 07/19/17 16:41 Dose: 100 mg Hydromorphone HCl (Dilaudid) 2 mg PO Q4 PRN PRN Reason: Pain, severe (8-10) Last Admin: 07/20/17 05:23 Dose: 2 mg Lactulose (Enulose) 10 gm PO DAILY PRN PRN Reason: Constipation Last Admin: 07/19/17 08:54 Dose: 10 gm Losartan Potassium (Cozaar) 100 mg PO DAILY [facility] Last Admin: 07/19/17 08:53 Dose: 100 mg Metoprolol Tartrate (Lopressor) 50 mg PO Q12 [facility] Last Admin: 07/19/17 20:56 Dose: 50 mg Rivaroxaban (Xarelto) 20 mg PO DAILY@1700 [facility] PRN Reason: Protocol Last Admin: 07/19/17 16:41 Dose: 20 mg Tamsulosin HCl (Flomax) 0.4 mg PO DAILY [facility] Last Admin: 07/19/17 08:53 Dose: 0.4 mg Tramadol HCl (Ultram) 50 mg PO Q4 PRN PRN Reason: Pain, moderate (4-7) - Labs Labs: 07/16/17 10:10 07/16/17 10:10 PT 13.4 Seconds (9.8-13.1) H 07/16/17 10:10 INR 1.3 (0.9-1.2) H 07/16/17 10:10 APTT 33.2 Seconds (25.6-37.1) 07/16/17 10:10 - Constitutional Appears: Well, Non-toxic, No Acute Distress - Head Exam Head Exam: ATRAUMATIC, NORMAL INSPECTION, NORMOCEPHALIC - Eye Exam Eye Exam: EOMI, Normal appearance, PERRL Pupil Exam: NORMAL ACCOMODATION, PERRL - ENT Exam ENT Exam: Mucous Membranes Moist, Normal Exam - Neck Exam Neck Exam: Full ROM, Normal Inspection. absent: Lymphadenopathy - Respiratory Exam Respiratory Exam: Clear to Ausculation Bilateral, NORMAL BREATHING PATTERN - Cardiovascular Exam Cardiovascular Exam: REGULAR RHYTHM, RRR, +S1, +S2. absent: Murmur - GI/Abdominal Exam GI & Abdominal Exam: Soft, Normal Bowel Sounds. absent: Tenderness - Extremities Exam Extremities Exam: Full ROM, Normal Capillary Refill, Normal Inspection. absent : Joint Swelling, Pedal Edema - Back Exam Back Exam: NORMAL INSPECTION - Neurological Exam Neurological Exam: Alert, Awake, CN II-XII Intact, Normal Gait, Oriented x3 - Psychiatric Exam Psychiatric exam: Normal Affect, Normal Mood - Skin Skin Exam: Dry, Intact, Normal Color, Warm Assessment and Plan (1) DVT prophylaxis Status: Acute (2) HTN (hypertension) Status: Acute (3) Osteoarthritis of right hip Status: Acute - Assessment and Plan (Free Text) Assessment: (1) DVT prophylaxis Assessment and Plan: scd and ae hose eliquis ambulation Status: Acute (2) HTN (hypertension) Assessment and Plan: cont home meds hold sbp less than 100 Status: Acute (3) Osteoarthritis of right hip Assessment and Plan: pt/ot physiatry pain control ortho Status: Acute 4-r knee swelling-dvt negative, likely r/t thr.
[2017-07-20 15:50] LABS: BASO # 0.1 K/uL (0.0-0.2); BASO % 1.5 % (0.0-2.0); EOS # 0.3 K/uL (0.0-0.7); EOS % 3.3 % (0.0-4.0); LYMPH # 1.3 K/uL (1.0-4.3); LYMPH % 15.9 % (20.0-40.0); MEAN CELL VOLUME 93.2 fl (80.0-94.0); MEAN CORPUSCULAR HEMOGLOBIN 30.5 pg (27.0-31.0); MEAN CORPUSCULAR HGB CONC 32.8 g/dL (33.0-37.0); MEAN PLATELET VOLUME 7.9 fl (7.2-11.7); MONO # 0.6 K/uL (0.0-0.8); MONO % 7.4 % (0.0-10.0); NEUT % 71.9 % (50.0-75.0); NRBC % 0.1 % (0.0-0.0); RED CELL DISTRIBUTION WIDTH 14.3 % (11.5-14.5); WHITE BLOOD COUNT 8.3 K/uL (4.8-10.8)
[2017-07-20 16:36] LABS: ALB/GLOB RATIO 1.2 (1.0-2.1); ALKALINE PHOSPHATASE 66 U/L (38-126); ALT/SGPT 37 U/L (21-72); AST/SGOT 23 U/L (17-59); BLOOD UREA NITROGEN 18 mg/dl (9-20); CALCIUM 9.2 mg/dL (8.4-10.2); CARBON DIOXIDE 27 mmol/L (22-30); CHLORIDE 105 mmol/L (98-107); GFR AFRICAN-AMERICAN > 60; GLUCOSE,RANDOM 100 mg/dL (75-110); SODIUM 140 mmol/l (132-148); TOTAL PROTEIN 6.1 G/DL (6.3-8.2)
--- NOTE | 2017-07-20 20:44 | CP.PCM.PN ---
Subjective - Date & Time of Evaluation Date of Evaluation: 07/20/17 Time of Evaluation: 11:40 - Subjective Subjective: patient with less complaints of swelling Objective - Vital Signs/Intake and Output Vital Signs (last 24 hours): Temp Pulse Resp BP Pulse Ox 98.8 F 90 20 118/68 96 07/20/17 20:20 07/20/17 20:20 07/20/17 20:20 07/20/17 20:20 07/20/17 20:20 - Medications Medications: Current Medications Acetaminophen (Tylenol 325mg Tab) 325 mg PO Q4 PRN PRN Reason: pain1-3 Allopurinol (Zyloprim) 300 mg PO DAILY [facility] Last Admin: 07/20/17 08:44 Dose: 300 mg Alprazolam (Xanax) 0.5 mg PO Q8 PRN PRN Reason: Anxiety Last Admin: 07/20/17 00:30 Dose: 0.5 mg Celecoxib (Celebrex) 200 mg PO Q12 [facility] Last Admin: 07/20/17 08:44 Dose: 200 mg Docusate Sodium (Colace) 100 mg PO BID [facility] Last Admin: 07/20/17 17:13 Dose: 100 mg Hydromorphone HCl (Dilaudid) 2 mg PO Q4 PRN PRN Reason: Pain, severe (8-10) Last Admin: 07/20/17 17:39 Dose: 2 mg Lactulose (Enulose) 10 gm PO DAILY PRN PRN Reason: Constipation Last Admin: 07/19/17 08:54 Dose: 10 gm Losartan Potassium (Cozaar) 100 mg PO DAILY [facility] Last Admin: 07/20/17 08:44 Dose: 100 mg Metoprolol Tartrate (Lopressor) 50 mg PO Q12 [facility] Last Admin: 07/20/17 08:43 Dose: 50 mg Rivaroxaban (Xarelto) 20 mg PO DAILY@1700 [facility] PRN Reason: Protocol Last Admin: 07/20/17 17:13 Dose: 20 mg Tamsulosin HCl (Flomax) 0.4 mg PO DAILY [facility] Last Admin: 07/20/17 08:43 Dose: 0.4 mg Tramadol HCl (Ultram) 50 mg PO Q4 PRN PRN Reason: Pain, moderate (4-7) Last Admin: 07/20/17 12:29 Dose: 50 mg - Labs Labs: 07/20/17 15:42 07/20/17 15:42 PT 13.4 Seconds (9.8-13.1) H 07/16/17 10:10 INR 1.3 (0.9-1.2) H 07/16/17 10:10 APTT 33.2 Seconds (25.6-37.1) 07/16/17 10:10 - Head Exam Head Exam: ATRAUMATIC, NORMAL INSPECTION - Eye Exam Eye Exam: EOMI, Normal appearance Pupil Exam: NORMAL ACCOMODATION - ENT Exam ENT Exam: Normal Exam - Respiratory Exam Respiratory Exam: NORMAL BREATHING PATTERN - Cardiovascular Exam Cardiovascular Exam: REGULAR RHYTHM - GI/Abdominal Exam GI & Abdominal Exam: Normal Bowel Sounds - Rectal Exam Rectal Exam: NORMAL INSPECTION - Exam External exam: NORMAL EXTERNAL EXAM - Extremities Exam Extremities Exam: Normal Capillary Refill - Back Exam Back Exam: NORMAL INSPECTION - Neurological Exam Neurological Exam: CN II-XII Intact Neuro motor strength exam: Left Upper Extremity: 4, Right Upper Extremity: 4, Left Lower Extremity: 4, Right Lower Extremity: 3 - Psychiatric Exam Psychiatric exam: Normal Affect, Normal Mood - Skin Skin Exam: Dry, Normal Color Assessment and Plan (1) DVT prophylaxis Status: Acute (2) HTN (hypertension) Status: Acute (3) Osteoarthritis of right hip Assessment & Plan: status post right hip surgery status post duplex venous scan pt ot therapy covering for Dr Ochoa Status: Acute (4) Renal colic on right side Status: Acute
[2017-07-21 08:59] LABS: BASO # 0.1 K/uL (0.0-0.2); BASO % 1.2 % (0.0-2.0); EOS # 0.3 K/uL (0.0-0.7); EOS % 3.6 % (0.0-4.0); HEMATOCRIT 27.5 % (35.0-51.0); LYMPH # 1.1 K/uL (1.0-4.3); LYMPH % 15.7 % (20.0-40.0); MEAN CELL VOLUME 92.2 fl (80.0-94.0); MEAN CORPUSCULAR HEMOGLOBIN 31.1 pg (27.0-31.0); MEAN CORPUSCULAR HGB CONC 33.7 g/dL (33.0-37.0); MEAN PLATELET VOLUME 7.8 fl (7.2-11.7); MONO # 0.5 K/uL (0.0-0.8); MONO % 6.3 % (0.0-10.0); NEUT # 5.3 K/uL (1.8-7.0); NEUT % 73.2 % (50.0-75.0); RED CELL DISTRIBUTION WIDTH 14.1 % (11.5-14.5); WHITE BLOOD COUNT 7.3 K/uL (4.8-10.8)
[2017-07-21 09:25] LABS: IRON 50 ug/dL (49-181)
--- NOTE | 2017-07-21 15:34 | CP.PCM.PCO ---
Physician Communication Note - Physician Communication Note Physician Communication Note: pt has serous d/c from wound. ortho aware, not cleared for dc
--- NOTE | 2017-07-21 16:04 | CP.PCM.CON ---
History of Present Illness - History of Present Illness History of Present Illness: Surgery: Dr. Beck CC: wound check HPI: Patient is a 62 y/o male s/p right total hip replacement about 9 days ago. Patient reports some straw colored fluid draining from incision. Patient denies fever or chills. He reports ambulating regularly with PT as well as independently with walker. Patient denies pain to the wound or purulent fluid. PMH: HTN, osteoarthritis PSH: right hip replacement Review of Systems - Review of Systems All systems: reviewed and no additional remarkable complaints except Review of Systems: unless stated in HPI Past Patient History - Past Medical History & Family History Past Medical History?: Yes - Past Social History Smoking Status: Former Smoker - CARDIAC Hx Cardiac Disorders: Yes Hx Atrial Fibrillation: Yes Hx Hypercholesterolemia: Yes Hx Hypertension: Yes - PULMONARY Hx Chronic Obstructive Pulmonary Disease (COPD): Yes - NEUROLOGICAL Hx Neurological Disorder: No - HEENT Hx HEENT Problems: No - RENAL Hx Chronic Kidney Disease: Yes Other/Comment: RIGHT KIDNEY STONE - ENDOCRINE/METABOLIC Hx Endocrine Disorders: No - HEMATOLOGICAL/ONCOLOGICAL Hx Blood Disorders: Yes Hx AIDS: No Hx Bruising: Yes Hx Human Immunodeficiency Virus (HIV): No - INTEGUMENTARY Hx Dermatological Problems: No - MUSCULOSKELETAL/RHEUMATOLOGICAL Hx Arthritis: Yes Hx Falls: No Hx Gout: Yes - GASTROINTESTINAL Hx Gastrointestinal Disorders: No - GENITOURINARY/GYNECOLOGICAL Hx Bladder Stone: Yes (RIGHT KIDNEY STONE) - PSYCHIATRIC Hx Psychophysiologic Disorder: No Hx Substance Use: No - SURGICAL HISTORY Hx Surgeries: Yes Hx Arthroscopy: Yes (RIGHT KNEE ARTHROSCOPYx2) Hx Orthopedic Surgery: Yes (rt knee) - ANESTHESIA Hx Anesthesia: Yes Hx Anesthesia Reactions: No Hx Malignant Hyperthermia: No Meds Home Medications: Home Medication List Medication Instructions Recorded Confirmed Type Celecoxib [celeBREX] 200 mg PO Q12 #60 cap 07/20/17 Rx HYDROmorphone [Dilaudid] 2 mg PO Q4 PRN #10 tab 07/20/17 Rx Rivaroxaban [Xarelto] 20 mg PO DAILY #14 tab 07/20/17 Rx traMADol [Ultram] 50 mg PO Q4 PRN #10 tab 07/20/17 Rx Allergies/Adverse Reactions: Allergies Allergy/AdvReac Type Severity Reaction Status Date / Time codeine Allergy RASH Verified 07/15/17 14:44 - Medications Medications: Current Medications Acetaminophen (Tylenol 325mg Tab) 325 mg PO Q4 PRN PRN Reason: pain1-3 Allopurinol (Zyloprim) 300 mg PO DAILY [facility] Last Admin: 07/21/17 08:16 Dose: 300 mg Alprazolam (Xanax) 0.5 mg PO Q8 PRN PRN Reason: Anxiety Last Admin: 07/20/17 23:10 Dose: 0.5 mg Aspirin (Aspirin) 325 mg PO DAILY [facility] Celecoxib (Celebrex) 200 mg PO Q12 [facility] Last Admin: 07/21/17 08:15 Dose: 200 mg Cyanocobalamin (Vitamin B12 1000 Mcg/Ml Inj) 1,000 mcg IM DAILY [facility] Docusate Sodium (Colace) 100 mg PO BID [facility] Last Admin: 07/21/17 08:16 Dose: 100 mg Ferrous Sulfate (Feosol) 325 mg PO BID [facility] Last Admin: 07/21/17 11:00 Dose: 325 mg Hydromorphone HCl (Dilaudid) 2 mg PO Q4 PRN PRN Reason: Pain, severe (8-10) Last Admin: 07/21/17 14:45 Dose: 2 mg Lactulose (Enulose) 10 gm PO DAILY PRN PRN Reason: Constipation Last Admin: 07/19/17 08:54 Dose: 10 gm Losartan Potassium (Cozaar) 100 mg PO DAILY [facility] Last Admin: 07/21/17 08:17 Dose: 100 mg Metoprolol Tartrate (Lopressor) 50 mg PO Q12 [facility] Last Admin: 07/21/17 08:15 Dose: 50 mg Tamsulosin HCl (Flomax) 0.4 mg PO DAILY [facility] Last Admin: 07/21/17 08:18 Dose: 0.4 mg Tramadol HCl (Ultram) 50 mg PO Q4 PRN PRN Reason: Pain, moderate (4-7) Last Admin: 07/20/17 12:29 Dose: 50 mg Physical Exam - Constitutional Appears: Well, Non-toxic, No Acute Distress - Head Exam Head Exam: ATRAUMATIC, NORMOCEPHALIC - Eye Exam Eye Exam: EOMI, Normal appearance - ENT Exam ENT Exam: Mucous Membranes Moist - Respiratory Exam Respiratory Exam: NORMAL BREATHING PATTERN. absent: Respiratory Distress - Cardiovascular Exam Cardiovascular Exam: REGULAR RHYTHM. absent: Tachycardia - Extremities Exam Additional comments: right hip lateral incision noted w/ moderate ecchymosis at different stages on healing spanning about 4 cm from incision. Edema noted in surrounding tissues as well. Skin edges well approximated and wound closed with renate. Nontender to palpation, no point tenderness. No fluid expressible from wound throughout. - Neurological Exam Neurological exam: Alert, Oriented x3 - Psychiatric Exam Psychiatric exam: Normal Affect, Normal Mood - Skin Skin Exam: Dry, Normal Color, Warm Results - Vital Signs Recent Vital Signs: Last Vital Signs Temp 96.9 F L 07/21/17 08:06 Pulse 95 H 07/21/17 08:17 Resp 22 07/21/17 08:06 BP 144/95 H 07/21/17 08:17 Pulse Ox 95 07/21/17 08:06 - Labs Result Diagrams: 07/21/17 08:42 07/20/17 15:42 Labs: Laboratory Results - last 24 hr 07/20/17 07/20/17 07/21/17 15:42 15:42 08:42 WBC 8.3 7.3 RBC 3.12 L 2.99 L Hgb 9.5 L 9.3 L Hct 29.0 L 27.5 L MCV 93.2 92.2 MCH 30.5 31.1 H MCHC 32.8 L 33.7 RDW 14.3 14.1 Plt Count 335 372 MPV 7.9 7.8 Neut % (Auto) 71.9 73.2 Lymph % (Auto) 15.9 L 15.7 L [place] % (Auto) 7.4 6.3 Eos % (Auto) 3.3 3.6 Baso % (Auto) 1.5 1.2 Neut # 6.0 5.3 Lymph # 1.3 1.1 [place] # 0.6 0.5 Eos # 0.3 0.3 Baso # 0.1 0.1 Sodium 140 Potassium 4.0 Chloride 105 Carbon Dioxide 27 Anion Gap 12 BUN 18 Creatinine 1.1 Est GFR ( Amer) > 60 Est GFR (Non-Af Amer) > 60 Random Glucose 100 Calcium 9.2 Iron TIBC % Saturation Ferritin Total Bilirubin 1.0 AST 23 ALT 37 Alkaline Phosphatase 66 Total Protein 6.1 L Albumin 3.3 L Globulin 2.8 Albumin/Globulin Ratio 1.2 Vitamin B12 07/21/17 07/21/17 08:42 08:42 WBC RBC Hgb Hct MCV MCH MCHC RDW Plt Count MPV Neut % (Auto) Lymph % (Auto) [place] % (Auto) Eos % (Auto) Baso % (Auto) Neut # Lymph # [place] # Eos # Baso # Sodium Potassium Chloride Carbon Dioxide Anion Gap BUN Creatinine Est GFR ( Amer) Est GFR (Non-Af Amer) Random Glucose Calcium Iron 50 TIBC 284 % Saturation 18 L Ferritin 456.0 Total Bilirubin AST ALT Alkaline Phosphatase Total Protein Albumin Globulin Albumin/Globulin Ratio Vitamin B12 206 L Assessment & Plan - Assessment and Plan (Free Text) Assessment: 62 y/o male s/p right hip replacement surgery w/ resolving hematoma Plan: -currently no sign of infection at wound -needs close wound monitoring -cleared for d/c from plastic surgery standpoint -should f/u with primary surgeon in about 5 days -agree with home nursing -monitor for fever or purulent discharge from wound, return if symptoms arise -encourage ambulation -discussed plan of care with Dr. Kiran Wilson PGY3
[2017-07-21 16:31] VITALS: RESP 20
[2017-07-21 18:31] LABS: FOLATE 7.3 ng/mL
[2017-07-22 08:25] VITALS: PULSE 90
--- NOTE | 2017-07-22 09:36 | CP.PCM.DIS ---
Provider - Provider Date of Admission: 07/15/17 14:45 Attending physician: Malissa Urbina MD Primary care physician: Samantha Bangura MD Time Spent in preparation of Discharge (in minutes): 15 Diagnosis - Discharge Diagnosis (1) DVT prophylaxis Status: Acute (2) HTN (hypertension) Status: Acute (3) Osteoarthritis of right hip Status: Acute Hospital Course - Lab Results Lab Results: Most Recent Lab Values WBC 7.3 K/uL (4.8-10.8) 07/21/17 08:42 RBC 2.99 Mil/uL (4.40-5.90) L 07/21/17 08:42 Hgb 9.3 g/dL (12.0-18.0) L 07/21/17 08:42 Hct 27.5 % (35.0-51.0) L 07/21/17 08:42 MCV 92.2 fl (80.0-94.0) 07/21/17 08:42 MCH 31.1 pg (27.0-31.0) H 07/21/17 08:42 MCHC 33.7 g/dL (33.0-37.0) 07/21/17 08:42 RDW 14.1 % (11.5-14.5) 07/21/17 08:42 Plt Count 372 K/uL (130-400) 07/21/17 08:42 MPV 7.8 fl (7.2-11.7) 07/21/17 08:42 Neut % (Auto) 73.2 % (50.0-75.0) 07/21/17 08:42 Lymph % (Auto) 15.7 % (20.0-40.0) L 07/21/17 08:42 [place] % (Auto) 6.3 % (0.0-10.0) 07/21/17 08:42 Eos % (Auto) 3.6 % (0.0-4.0) 07/21/17 08:42 Baso % (Auto) 1.2 % (0.0-2.0) 07/21/17 08:42 Neut # 5.3 K/uL (1.8-7.0) 07/21/17 08:42 Lymph # 1.1 K/uL (1.0-4.3) 07/21/17 08:42 [place] # 0.5 K/uL (0.0-0.8) 07/21/17 08:42 Eos # 0.3 K/uL (0.0-0.7) 07/21/17 08:42 Baso # 0.1 K/uL (0.0-0.2) 07/21/17 08:42 PT 13.4 Seconds (9.8-13.1) H 07/16/17 10:10 INR 1.3 (0.9-1.2) H 07/16/17 10:10 APTT 33.2 Seconds (25.6-37.1) 07/16/17 10:10 Sodium 140 mmol/l (132-148) 07/20/17 15:42 Potassium 4.0 MMOL/L (3.6-5.0) 07/20/17 15:42 Chloride 105 mmol/L (98-107) 07/20/17 15:42 Carbon Dioxide 27 mmol/L (22-30) 07/20/17 15:42 Anion Gap 12 (10-20) 07/20/17 15:42 BUN 18 mg/dl (9-20) 07/20/17 15:42 Creatinine 1.1 mg/dL (0.8-1.5) 07/20/17 15:42 Est GFR ( Amer) > 60 07/20/17 15:42 Est GFR (Non-Af Amer) > 60 07/20/17 15:42 Random Glucose 100 mg/dL (75-110) 07/20/17 15:42 Calcium 9.2 mg/dL (8.4-10.2) 07/20/17 15:42 Iron 50 ug/dL (49-181) 07/21/17 08:42 TIBC 284 ug/dL (250-450) 07/21/17 08:42 % Saturation 18 % (20-55) L 07/21/17 08:42 Transferrin 199.28 mg/dL (206-381) L 07/21/17 08:42 Ferritin 456.0 ng/mL 07/21/17 08:42 Total Bilirubin 1.0 mg/dl (0.2-1.3) 07/20/17 15:42 AST 23 U/L (17-59) 07/20/17 15:42 ALT 37 U/L (21-72) 07/20/17 15:42 Alkaline Phosphatase 66 U/L (38-126) 07/20/17 15:42 Total Protein 6.1 G/DL (6.3-8.2) L 07/20/17 15:42 Albumin 3.3 g/dL (3.5-5.0) L 07/20/17 15:42 Globulin 2.8 gm/dL (2.2-3.9) 07/20/17 15:42 Albumin/Globulin Ratio 1.2 (1.0-2.1) 07/20/17 15:42 Vitamin B12 206 pg/mL (239-931) L 07/21/17 08:42 Folate 7.3 ng/mL 07/21/17 08:42 Discharge Exam - Head Exam Head Exam: ATRAUMATIC, NORMOCEPHALIC - Eye Exam Eye Exam: EOMI, Normal appearance, PERRL Pupil Exam: NORMAL ACCOMODATION, PERRL - Respiratory Exam Respiratory Exam: Clear to PA & Lateral, NORMAL BREATHING PATTERN, UNREMARKABLE - Cardiovascular Exam Cardiovascular Exam: Irregular Rhythm, +S1, +S2 - GI/Abdominal Exam GI & Abdominal Exam: Normal Bowel Sounds, Soft, Unremarkable - Extremities Exam Extremities exam: full ROM, normal capillary refill, normal inspection, pedal pulses present - Back Exam Back exam: NORMAL INSPECTION - Neurological Exam Neurological exam: Alert, CN II-XII Intact, Normal Gait, Oriented x3, Reflexes Normal - Psychiatric Exam Psychiatric exam: Normal Affect, Normal Mood - Skin Skin Exam: Dry, Intact, Normal Color, Warm Discharge Plan - Discharge Medications Prescriptions: Aspirin 325 mg PO DAILY #30 tab Celecoxib [celeBREX] 200 mg PO Q12 #60 cap HYDROmorphone [Dilaudid] 2 mg PO Q4 PRN #10 tab PRN Reason: Pain, Severe (8-10) traMADol [Ultram] 50 mg PO Q4 PRN #10 tab PRN Reason: Pain, Moderate (4-7) - Follow Up Plan Condition: GOOD Disposition: HOME/ ROUTINE Additional Instructions: doing well, less serous dc from thr wound. cleared by ortho for dc. hold xarelto x 10 days-cleare dby pts cardio dr shearer f/u rmg and ortho as directed, rted prn, meds per med rec fianl dx- r hip oa, thr, afib Referrals: Samantha Bangura MD [Primary Care Provider] -
[2017-07-22 16:00] VITALS: BP 123/83; TEMP 97.9; O2SAT 96
--- NOTE | 2017-07-22 16:56 | CP.PCM.PN ---
Subjective - Date & Time of Evaluation Date of Evaluation: 07/22/17 Time of Evaluation: 08:30 - Subjective Subjective: S/P right robotic assisted THR Pt seen and examined at bedside, comfortable in bed Pt c/o mild right hip pain, wound drainage Pt denies SOB, chest pain, N/V/D, fever/chills, numbness/tingling RLE Objective - Vital Signs/Intake and Output Vital Signs (last 24 hours): Temp Pulse Resp BP Pulse Ox 97.9 F 90 20 123/83 96 07/22/17 15:59 07/22/17 15:59 07/22/17 15:59 07/22/17 15:59 07/22/17 15:59 - Medications Medications: Current Medications Acetaminophen (Tylenol 325mg Tab) 325 mg PO Q4 PRN PRN Reason: pain1-3 Allopurinol (Zyloprim) 300 mg PO DAILY [facility] Last Admin: 07/22/17 08:24 Dose: 300 mg Alprazolam (Xanax) 0.5 mg PO Q8 PRN PRN Reason: Anxiety Last Admin: 07/21/17 22:40 Dose: 0.5 mg Celecoxib (Celebrex) 200 mg PO Q12 [facility] Last Admin: 07/22/17 08:23 Dose: 200 mg Cyanocobalamin (Vitamin B12 1000 Mcg/Ml Inj) 1,000 mcg IM DAILY [facility] Last Admin: 07/22/17 08:24 Dose: 1,000 mcg Docusate Sodium (Colace) 100 mg PO BID [facility] Last Admin: 07/22/17 08:23 Dose: 100 mg Ferrous Sulfate (Feosol) 325 mg PO BID [facility] Last Admin: 07/22/17 08:24 Dose: 325 mg Hydromorphone HCl (Dilaudid) 2 mg PO Q4 PRN PRN Reason: Pain, severe (8-10) Last Admin: 07/22/17 10:32 Dose: 2 mg Lactulose (Enulose) 10 gm PO DAILY PRN PRN Reason: Constipation Last Admin: 07/19/17 08:54 Dose: 10 gm Losartan Potassium (Cozaar) 100 mg PO DAILY [facility] Last Admin: 07/22/17 08:23 Dose: 100 mg Metoprolol Tartrate (Lopressor) 50 mg PO Q12 [facility] Last Admin: 07/22/17 08:24 Dose: 50 mg Rivaroxaban (Xarelto) 20 mg PO QD5 [facility] PRN Reason: Protocol Tamsulosin HCl (Flomax) 0.4 mg PO DAILY [facility] Last Admin: 07/22/17 08:24 Dose: 0.4 mg Tramadol HCl (Ultram) 50 mg PO Q4 PRN PRN Reason: Pain, moderate (4-7) Last Admin: 07/20/17 12:29 Dose: 50 mg - Labs Labs: 07/21/17 08:42 07/20/17 15:42 PT 13.4 Seconds (9.8-13.1) H 07/16/17 10:10 INR 1.3 (0.9-1.2) H 07/16/17 10:10 APTT 33.2 Seconds (25.6-37.1) 07/16/17 10:10 - Constitutional Appears: Well, No Acute Distress - Respiratory Exam Respiratory Exam: Clear to Ausculation Bilateral, NORMAL BREATHING PATTERN - Cardiovascular Exam Cardiovascular Exam: REGULAR RHYTHM, RRR - Extremities Exam Additional comments: RLE: Hip dressing C/D/I Calves soft and nontender b/l N/V intact distally Distal pulses wnl Assessment and Plan - Assessment and Plan (Free Text) Assessment: 62 yo M s/p right robotic assisted THR Plan: Pain Control DVT ppx- aspirin 325mg BID; d/c xarelto temporarily until wound drainage resolves PT/OT WBAT RLE Daily dressing changes D/C - pt will f/u in office next Tue07/27/17
--- NOTE | 2017-07-22 20:53 | PN ---
SUBJECTIVE: The patient is feeling fine. No acute complains at present in the right hip. PHYSICAL EXAMINATION: VITAL SIGNS: Stable. NECK: Supple. CHEST: Symmetrical. HEART: S1 and S2. ABDOMEN: Benign. EXTREMITIES: No clubbing, cyanosis or edema. IMPRESSION: Right hip replacement, gait difficulty, osteoarthritis, hypertension. PLAN: The patient with tentative discharge for today, to get home therapy, has received equipment. Jaciel Montero MD
== END 2017-07-22 18:54 | disposition home or self-care (01) | DRG 560 ==
LOC: H.TCU 14:45
PROVIDERS: ADMIT Family Medicine; ATTEND Family Medicine
PROC: F07Z9FZ Gait Training/Functional Ambulation Treatment using Assistive, Adaptive, Supportive or Protective Equipment (ICD-10-PCS; principal; 2017-07-15)
PROC: F08Z4FZ Home Management Treatment using Assistive, Adaptive, Supportive or Protective Equipment (ICD-10-PCS; 2017-07-15)
PROC: F07L6FZ Therapeutic Exercise Treatment of Musculoskeletal System - Lower Back / Lower Extremity using Assistive, Adaptive, Supportive or Protective Equipment (ICD-10-PCS; 2017-07-16)
DX: Z47.1 Aftercare following joint replacement surgery (principal); M16.11 Unilateral primary osteoarthritis, right hip; Z68.42 Body mass index [BMI] 45.0-49.9, adult; Z96.641 Presence of right artificial hip joint; I10 Essential (primary) hypertension; I48.91 Unspecified atrial fibrillation; J44.9 Chronic obstructive pulmonary disease, unspecified; M10.9 Gout, unspecified; R26.2 Difficulty in walking, not elsewhere classified; N23 Unspecified renal colic; E66.9 Obesity, unspecified; E78.00 Pure hypercholesterolemia, unspecified; Z88.6 Allergy status to analgesic agent; Z79.01 Long term (current) use of anticoagulants; Z87.891 Personal history of nicotine dependence; Z87.442 Personal history of urinary calculi

== ENCOUNTER 2017-07-29 09:39 | Inpatient (IN) | payer BC ==
[2017-07-29 09:45] VITALS: BMI 41.5
--- NOTE | 2017-07-29 10:30 | ED PDOC ---
HPI: Wound Care - HPI Time Seen by Provider: 07/29/17 10:17 Chief Complaint (Nursing): Wound Check Chief Complaint (Provider): Wound Check History Per: Patient Exam Limitations: no limitations Current Symptoms Are (Timing): Still Present Additional Complaint(s): 62 y/o male with a past medical history of hypertension who presents to the emergency department for a wound check up after surgical site started bleeding yesterday, 07/28/2017. Reports he had a hip replacement on 07/12/[address] Gandhi and then had jovan removed on 07/27/2017. States he is on high dose of Xarelto (blood thinner). Denies any further medical complaints. Past Medical History Reviewed: Historical Data, Nursing Documentation, Vital Signs Vital Signs: Last Vital Signs Temp 97.5 F L 07/29/17 09:44 Pulse 84 07/29/17 09:44 Resp 20 07/29/17 09:44 BP 110/75 07/29/17 09:44 Pulse Ox 97 07/29/17 09:44 - Medical History PMH: Arthritis, Atrial Fibrillation, COPD, HTN, Hypercholesterolemia, Chronic Kidney Disease Denies: HIV - Family History Family History: States: Hypertension - Social History Current smoker - smoking cessation education provided: No Ex-Smoker (has not smoked in the last 12 months): Yes Alcohol: Social Drugs: Cannabis - Home Medications Home Medications: Ambulatory Orders Medication Instructions Recorded Simvastatin 40 mg PO HS 06/26/14 amLODIPine [Norvasc] 10 mg PO DAILY 06/26/14 Celecoxib [celeBREX] 200 mg PO Q12 #60 cap 07/20/17 Aspirin 325 mg PO DAILY #30 tab 07/22/17 ALPRAZolam [Xanax] 1 mg PO HS PRN 07/29/17 Allopurinol [Zyloprim] 300 mg PO DAILY 07/29/17 Glucosa Felix 2Kcl/Chondroitin Felix 3 cap PO DAILY 07/29/17 [Glucosamine & Chondroitin Cap] Multivit-Min/Folic/Vit K/Lycop 1 tab PO DAILY 07/29/17 [One-A-Day Men's Tablet] Tamsulosin [Flomax] 0.4 mg PO HS 07/29/17 Telmisartan [Micardis] 160 mg PO DAILY 07/29/17 oxyCODONE/Acetaminophen [Percocet 1 tab PO Q6H PRN 07/29/17 5/325 mg Tab] - Allergies Allergies/Adverse Reactions: Allergies Allergy/AdvReac Type Severity Reaction Status Date / Time codeine Allergy RASH Verified 07/15/17 14:44 Review of Systems ROS Statement: Except As Marked, All Systems Reviewed And Found Negative Skin: Positive for: Other (Jovan removed by the hip) Physical Exam - Reviewed Nursing Documentation Reviewed: Yes Vital Signs Reviewed: Yes - Physical Exam Appears: Positive for: Non-toxic, No Acute Distress Head Exam: Positive for: ATRAUMATIC, NORMAL INSPECTION, NORMOCEPHALIC Skin: Positive for: Normal Color, Warm, Dry Extremity: Positive for: Other (half centimeter area of superior incision site that is dehisced and oozing dark blood ) Neurologic/Psych: Positive for: Alert, Oriented (x3) - Laboratory Results Result Diagrams: 07/31/17 06:30 07/31/17 06:30 - ECG O2 Sat by Pulse Oximetry: 97 (RA) Pulse Ox Interpretation: Normal Medical Decision Making Medical Decision Making: Time: 10:28 Initial Impression: Wound Care Initial Plan: --Evaluation of wound. --EKG --CMP --CBC w/ diff --PTT & Prothrombin --Blood [place] --Vancomycin 1 gm --Zosyn 3.375 gm Time: 10:30 --Spoke to Dr. Gandhi who would like patient admitted with basic lab work up. Time: 10:56 --Admit to hospital routine: As inpatient to Med/Surg for or wound dehiscence under the care of Dr. Malissa Urbina MD Scribe Attestation: Documented by Evie Fisher, acting as a scribe for Yamila Delacruz MD. Provider Scribe Attestation: All medical record entries made by the Scribe were at my direction and personally dictated by me. I have reviewed the chart and agree that the record accurately reflects my personal performance of the history, physical exam, medical decision making, and the department course for this patient. I have also personally directed, reviewed, and agree with the discharge instructions and disposition. Disposition - Clinical Impression Clinical Impression: Wound dehiscence - Patient ED Disposition Is Patient to be Admitted: Yes (As inpatient to Med/Surg under the care of Dr. Malissa Urbina MD) - Disposition Disposition Time: 10:56 Condition: STABLE - Pt Status Changed To: Hospital Disposition Of: Inpatient - Admit Certification Admit to Inpatient:: After my assessment, the patient will require hospitalization for at least two midnights. This is because of the severity of symptoms shown, intensity of services needed, and/or the medical risk in this patient being treated as an outpatient.
[2017-07-29] MEDS ORDERED: Piperacillin/Tazobact 3.375 GM in Sodium Chloride 0.9% 100 ML IVPB STA (10:55)
[2017-07-29] MEDS ORDERED: Piperacillin/Tazobact 3.375 gm Inj IVPB ONE (11:11)
[2017-07-29] MEDS ORDERED: Vancomycin 1 g Inj ONE (11:11)
[2017-07-29 11:31] LABS: BASO # 0.1 K/uL (0.0-0.2); BASO % 1.3 % (0.0-2.0); EOS # 0.2 K/uL (0.0-0.7); EOS % 3.4 % (0.0-4.0); HEMATOCRIT 32.3 % (35.0-51.0); LYMPH % 15.4 % (20.0-40.0); MEAN CELL VOLUME 92.1 fl (80.0-94.0); MEAN CORPUSCULAR HEMOGLOBIN 30.2 pg (27.0-31.0); MEAN CORPUSCULAR HGB CONC 32.7 g/dL (33.0-37.0); MEAN PLATELET VOLUME 8.6 fl (7.2-11.7); MONO # 0.4 K/uL (0.0-0.8); MONO % 6.4 % (0.0-10.0); NEUT # 4.6 K/uL (1.8-7.0); NEUT % 73.5 % (50.0-75.0); RED CELL DISTRIBUTION WIDTH 14.8 % (11.5-14.5); WHITE BLOOD COUNT 6.2 K/uL (4.8-10.8)
[2017-07-29 11:37] LABS: PARTIAL THROMBOPLASTIN TIME 32.9 Seconds (25.6-37.1)
[2017-07-29 12:01] LABS: ALB/GLOB RATIO 1.4 (1.0-2.1); ALKALINE PHOSPHATASE 68 U/L (38-126); ALT/SGPT 27 U/L (21-72); AST/SGOT 22 U/L (17-59); BILIRUBIN,TOTAL 0.8 mg/dl (0.2-1.3); BLOOD UREA NITROGEN 21 mg/dl (9-20); CALCIUM 9.1 mg/dL (8.4-10.2); CARBON DIOXIDE 27 mmol/L (22-30); CHLORIDE 105 mmol/L (98-107); GFR AFRICAN-AMERICAN > 60; GLUCOSE,RANDOM 104 mg/dL (75-110); POTASSIUM 3.7 MMOL/L (3.6-5.0); SODIUM 144 mmol/l (132-148); TOTAL PROTEIN 6.5 G/DL (6.3-8.2)
[2017-07-29] MEDS: Piperacillin/Tazobact 3.375 GM in Sodium Chloride 0.9% 100 ML IVPB SCH ×2 (13:12→23:16)
--- NOTE | 2017-07-29 15:47 | CP.PCM.CON ---
History of Present Illness - History of Present Illness History of Present Illness: 62 y/o male with a past medical history of hypertension who presents to the emergency department for a wound check up after surgical site started bleeding yesterday, 07/28/2017. Reports he had a hip replacement on 07/12/[address] Tucker and then had renate removed on 07/27/2017. States he is on high dose of Xarelto (blood thinner). dr tucker to see pt IV rx started ID consulted for this denies fever chills cough chest pain or sob no pus from wound - Medical History PMH: Arthritis, Atrial Fibrillation, COPD, HTN, Hypercholesterolemia, Chronic Kidney Disease Review of Systems - Constitutional Constitutional: absent: Chills, Fever, Headache, Malaise, Weight Loss - EENT Eyes: absent: As Per HPI, Blind Spots, Blurred Vision, Change in Vision, Decreased Night Vision, Diplopia, Discharge, Dry Eye, Exophthalmos, Floaters, Irritation, Itchy Eyes, Loss of Peripheral Vision, Pain, Photophobia, Requires Corrective Lenses, Sees Flashes, Spots in Vision, Tunnel Vision, Other Visual Disturbances, Loss of Vision, Other Ears: absent: As Per HPI, Decreased Hearing, Ear Discharge, Ear Pain, Tinnitus, Abnormal Hearing, Disequilibrium, Dizziness, Other Nose/Mouth/Throat: absent: As Per HPI, Epistaxis, Nasal Congestion, Nasal Discharge, Nasal Obstruction, Nasal Trauma, Nose Pain, Post Nasal Drip, Sinus Pain, Sinus Pressure, Bleeding Gums, Change in Voice, Dental Pain, Dry Mouth, Dysphagia, Halitosis, Hoarsness, Lip Swelling, Mouth Lesions, Mouth Pain, Odynophagia, Sore Throat, Throat Swelling, Tongue Swelling, Facial Pain, Neck Pain, Neck Mass, Other - Cardiovascular Cardiovascular: absent: As Per HPI, Acrocyanosis, Chest Pain, Chest Pain at Rest , Chest Pain with Activity, Claudication, Diaphoresis, Dyspnea, Dyspnea on Exertion, Edema, Irregular Heart Rhythm, Pain Radiating to Arm/Neck/Jaw, Leg Edema, Leg Ulcers, Lightheadedness, Orthopnea, Palpitations, Paroxysmal Nocturnal Dyspnea, Pedal Edema, Radiating Pain, Rapid Heart Rate, Slow Heart Rate, Syncope, Other - Respiratory Respiratory: absent: As Per HPI, Cough, Dyspnea, Hemoptysis, Dyspnea on Exertion , Wheezing, Snoring, Stridor, Pain on Inspiration, Chest Congestion, Excessive Mucous Production, Change in Mucous Color, Pain with Coughing, Other - Gastrointestinal Gastrointestinal: absent: As Per HPI, Abdominal Pain, Belching, Bloating, Change in Bowel Habits, Change in Stool Character, Coffee Ground Emesis, Constipation, Cramping, Diarrhea, Dyspepsia, Dysphagia, Early Satiety, Excessive Flatus, Fecal Incontinence, Heartburn, Hematemesis, Hematochezia, Loose Stools, Melena, Nausea, Odynophagia, Temesmus, Vomiting, Other - Genitourinary Genitourinary: absent: As Per HPI, Change in Urinary Stream, Difficulty Urinating, Dysuria, Flank Pain, Hematuria, Pyuria, Nocturia, Urinary Incontinence, Urinary Frequency, Urinary Hesitance, Urinary Urgency, Voiding Freq/Small Amts, Freq UTI, Hx Renal/Bladder Calculi, Hx /Renal Surgery, Bladder Distension, Other - Musculoskeletal Musculoskeletal: As Per HPI - Integumentary Integumentary: As Per HPI - Neurological Neurological: absent: As Per HPI, Abnormal Gait, Abnormal Hearing, Abnormal Movements, Abnormal Speech, Behavioral Changes, Burning Sensations, Confusion, Convulsions, Disequilibrium, Dizziness, Numbness, Focal Weakness, Frequent Falls , Headaches, Lack of Coordination, Loss of Vision, Memory Loss, Paresthesias, Radicular Pain, Restless Legs, Sensory Deficit, Syncope, Tingling, Tremor, Vertigo, Weakness, Other Visual Disturbances, Other - Psychiatric Psychiatric: absent: As Per HPI, Abnormal Sleep Pattern, Anhedonia, Anxiety, Auditory Hallucinations, Behavioral Changes, Change in Appetite, Change in Libido, Confusion, Depression, Difficulty Concentrating, Hallucinations, Homicidal Ideation, Hopelessness, Irritability, Memory Loss, Mood Swings, Panic Attacks, Paranoia, Suicidal Ideation, Visual Hallucinations, Tactile Hallucinations, Other - Endocrine Endocrine: absent: As Per HPI, Change in Body Appearance, Change in Libido, Cold Intolorance, Deepening of Voice, Excessive Sweating, Fatigue, Flushing, Heat Intolorance, Increase in Ring/Shoe/Hat Size, Palpitations, Polydipsia, Polyphagia, Polyuria, Other - Hematologic/Lymphatic Hematologic: absent: As Per HPI, Easy Bleeding, Easy Bruising, Lymphadenopathy, Other Past Patient History - Past Medical History & Family History Past Medical History?: Yes - Past Social History Alcohol: Social Drugs: Cannabis - CARDIAC Hx Cardiac Disorders: Yes - PULMONARY Hx Respiratory Disorders: Yes - NEUROLOGICAL Hx Neurological Disorder: No - HEENT Hx HEENT Problems: No - RENAL Hx Chronic Kidney Disease: Yes - ENDOCRINE/METABOLIC Hx Endocrine Disorders: No - HEMATOLOGICAL/ONCOLOGICAL Hx Human Immunodeficiency Virus (HIV): No - INTEGUMENTARY Hx Dermatological Problems: No - MUSCULOSKELETAL/RHEUMATOLOGICAL Hx Musculoskeletal Disorders: Yes - GASTROINTESTINAL Hx Gastrointestinal Disorders: No - GENITOURINARY/GYNECOLOGICAL Hx Bladder Stone: Yes (RIGHT KIDNEY STONE) - SURGICAL HISTORY Hx Surgeries: Yes Hx Arthroscopy: Yes (RIGHT KNEE x2) Hx Joint Replacement: Yes (right hip) Hx Orthopedic Surgery: Yes (rt knee) Other/Comment: Ruptured right patella tendon - ANESTHESIA Hx Anesthesia: Yes Hx Anesthesia Reactions: No Hx Malignant Hyperthermia: No Meds Allergies/Adverse Reactions: Allergies Allergy/AdvReac Type Severity Reaction Status Date / Time codeine Allergy RASH Verified 07/15/17 14:44 - Medications Medications: Current Medications Allopurinol (Zyloprim) 300 mg PO DAILY [facility] Alprazolam (Xanax) 1 mg PO HS PRN PRN Reason: Anxiety Amlodipine Besylate (Norvasc) 10 mg PO DAILY [facility] Aspirin (Aspirin) 325 mg PO DAILY [facility] Atorvastatin Calcium (Lipitor) 20 mg PO HS [facility] Celecoxib (Celebrex) 200 mg PO Q12 [facility] Home Med (Glucosa Felix 2kcl/Chondroitin Felix [Glucosamine & Chondroitin Cap]) 3 cap PO DAILY [facility] Home Med (Telmisartan [Micardis]) 160 mg PO DAILY [facility] Vancomycin HCl 1 gm/ Sodium (Chloride) 250 mls @ 166.667 mls/hr IVPB Q12 [facility] Piperacillin Sod/Tazobactam (Sod 3.375 gm/ Sodium Chloride) 100 mls @ 100 mls/ hr IVPB Q6 [facility] Last Admin: 07/29/17 13:12 Dose: Not Given Multivitamins/Minerals (Therapeutic-M Tab) 1 tab PO DAILY [facility] Oxycodone/Acetaminophen (Percocet 5/325 Mg Tab) 1 tab PO Q6H PRN PRN Reason: Pain, severe (8-10) Stop: 08/01/17 12:29 Tamsulosin HCl (Flomax) 0.4 mg PO HS [facility] Physical Exam - Constitutional Appears: Non-toxic, Chronically Ill - Head Exam Head Exam: NORMOCEPHALIC - Eye Exam Eye Exam: PERRL. absent: Scleral icterus - ENT Exam ENT Exam: Mucous Membranes Dry, Normal External Ear Exam - Neck Exam Neck exam: Negative for: Lymphadenopathy, Thyromegaly - Respiratory Exam Respiratory Exam: Decreased Breath Sounds, Clear to Auscultation Bilateral - Cardiovascular Exam Cardiovascular Exam: REGULAR RHYTHM, +S1, +S2 - GI/Abdominal Exam GI & Abdominal Exam: Diminished Bowel Sounds, Soft. absent: Tenderness - Rectal Exam Rectal Exam: Deferred - Exam Exam: NORMAL INSPECTION - Extremities Exam Extremities exam: Positive for: pedal edema, pedal pulses present. Negative for : calf tenderness, normal inspection, tenderness Additional comments: minimal serous drainanage right hip area with small area dehissence no pus no odor - Back Exam Back exam: absent: CVA tenderness (L), CVA tenderness (R) - Neurological Exam Neurological exam: Alert, CN II-XII Intact, Oriented x3, Reflexes Normal - Psychiatric Exam Psychiatric exam: Normal Mood - Skin Skin Exam: Dry, Normal Color Results - Vital Signs Recent Vital Signs: Last Vital Signs Temp 97.5 F L 07/29/17 12:24 Pulse 84 07/29/17 12:24 Resp 20 07/29/17 12:24 BP 110/75 07/29/17 12:24 Pulse Ox 97 07/29/17 11:01 - Labs Result Diagrams: 07/31/17 06:30 07/31/17 06:30 Labs: Laboratory Results - last 24 hr 07/29/17 07/29/17 07/29/17 10:45 10:45 11:45 WBC 6.2 RBC 3.50 L Hgb 10.6 L Hct 32.3 L MCV 92.1 MCH 30.2 MCHC 32.7 L RDW 14.8 H Plt Count 419 H MPV 8.6 Neut % (Auto) 73.5 Lymph % (Auto) 15.4 L [place] % (Auto) 6.4 Eos % (Auto) 3.4 Baso % (Auto) 1.3 Neut # 4.6 Lymph # 1.0 Howard # 0.4 Eos # 0.2 Baso # 0.1 PT 11.9 INR 1.2 APTT 32.9 Sodium 144 Potassium 3.7 Chloride 105 Carbon Dioxide 27 Anion Gap 15 BUN 21 H Creatinine 1.2 Est GFR ( Amer) > 60 Est GFR (Non-Af Amer) > 60 Random Glucose 104 Calcium 9.1 Total Bilirubin 0.8 AST 22 ALT 27 Alkaline Phosphatase 68 Total Protein 6.5 Albumin 3.9 Globulin 2.7 Albumin/Globulin Ratio 1.4 Assessment & Plan (1) Wound dehiscence Status: Acute (2) HTN (hypertension) Status: Acute (3) Osteoarthritis of right hip Status: Acute - Assessment and Plan (Free Text) Assessment: s/p right hip arthroplasty with bleeding from incision on xarelto for dvt prophylaxis no systemic signs of infection if bleeding/ drainage persist may need washout empiric antibiotics / await cultures
[2017-07-29] MEDS: Oxycodone/Acetaminophen 5/325 mg Tab PO PRN (21:51)
[2017-07-30] MEDS: Piperacillin/Tazobact 3.375 GM in Sodium Chloride 0.9% 100 ML IVPB SCH ×4 (05:00→22:31)
[2017-07-30] MEDS: Oxycodone/Acetaminophen 5/325 mg Tab PO PRN ×3 (05:57→22:30)
[2017-07-30 07:10] LABS: BASO # 0.1 K/uL (0.0-0.2); BASO % 1.1 % (0.0-2.0); EOS # 0.2 K/uL (0.0-0.7); EOS % 3.4 % (0.0-4.0); HEMATOCRIT 33.2 % (35.0-51.0); LYMPH # 1.3 K/uL (1.0-4.3); LYMPH % 19.4 % (20.0-40.0); MEAN CELL VOLUME 92.9 fl (80.0-94.0); MEAN CORPUSCULAR HEMOGLOBIN 30.3 pg (27.0-31.0); MEAN CORPUSCULAR HGB CONC 32.6 g/dL (33.0-37.0); MEAN PLATELET VOLUME 8.2 fl (7.2-11.7); MONO # 0.4 K/uL (0.0-0.8); MONO % 6.3 % (0.0-10.0); NEUT # 4.6 K/uL (1.8-7.0); NEUT % 69.8 % (50.0-75.0); NRBC % 0.1 % (0.0-0.0); RED CELL DISTRIBUTION WIDTH 14.7 % (11.5-14.5); WHITE BLOOD COUNT 6.6 K/uL (4.8-10.8)
[2017-07-30 07:18] LABS: ALB/GLOB RATIO 1.3 (1.0-2.1); ALKALINE PHOSPHATASE 68 U/L (38-126); ALT/SGPT 29 U/L (21-72); AST/SGOT 20 U/L (17-59); BILIRUBIN,TOTAL 0.7 mg/dl (0.2-1.3); BLOOD UREA NITROGEN 19 mg/dl (9-20); CALCIUM 9.2 mg/dL (8.4-10.2); CARBON DIOXIDE 25 mmol/L (22-30); CHLORIDE 107 mmol/L (98-107); GFR AFRICAN-AMERICAN > 60; GLUCOSE,RANDOM 94 mg/dL (75-110); POTASSIUM 3.5 MMOL/L (3.6-5.0); SODIUM 146 mmol/l (132-148); TOTAL PROTEIN 6.5 G/DL (6.3-8.2)
[2017-07-30] MEDS ORDERED: Potassium Chloride 20 mEq ER Tab PO ONE (08:13)
--- NOTE | 2017-07-30 08:16 | CP.PCM.HP ---
History of Present Illness - History of Present Illness History of Present Illness: pt admitted for hematoma and =some oozing to r hip s/p thr 1.5 wks ago. no f/c, nv//d. no wbc count. no purulent dc. sent by ortho for possible washout id consult appriciated. Present on Admission - Present on Admission Any Indicators Present on Admission: No Review of Systems - Integumentary Integumentary: As Per HPI Past Patient History - Past Medical History & Family History Past Medical History?: Yes - Past Social History Smoking Status: Former Smoker - CARDIAC Hx Cardiac Disorders: Yes - PULMONARY Hx Respiratory Disorders: Yes Hx Asthma: No Hx Bronchitis: No Hx Chronic Obstructive Pulmonary Disease (COPD): Yes Hx Emphysema: No Hx Lung Cancer: No Hx Pneumonia: No Hx Pulmonary Edema: No Hx Pulmonary Embolism: No Hx Respiratory Aspiration: No Hx Respiratory Tract Infection: No Hx Sleep Apnea: No Hx Tuberculosis: No - NEUROLOGICAL Hx Neurological Disorder: No Hx Alzheimer's Disease: No HX Cerebrovascular Accident: No Hx Dementia: No Hx Dizziness: No Hx Meningitis: No Hx Migraine: No Hx Multiple Sclerosis: No Hx Paralysis: No Hx Parkinson's Disease: No Hx Seizures: No Hx Syncope: No Hx Transient Ischemic Attacks (TIA): No Hx Vertigo: No - HEENT Hx HEENT Problems: No Hx Blind: No Hx Cataracts: No Hx Deafness: No Hx Difficulty Chewing: No Hx Epistaxis: No Hx Glaucoma: No Hx Macular Degeneration: No Hx Sinusitis: No - RENAL Hx Chronic Kidney Disease: Yes Hx Dialysis: No Hx Kidney Stones: Yes Hx Neurogenic Bladder: No Hx Pyelonephritis: No Hx Renal (Kidney) Cancer: No Hx Renal Failure: No - ENDOCRINE/METABOLIC Hx Endocrine Disorders: No Hx Adrenal Cancer: No Hx Diabetes Insipidus: No Hx Diabetes Mellitus Type 1: No Hx Diabetes Mellitus Type 2: No Hx Hyperthyroidism: No Hx Hypothyroidism: No Hx Systemic Lupus Erythematosus: No - HEMATOLOGICAL/ONCOLOGICAL Hx Blood Disorders: No Hx Human Immunodeficiency Virus (HIV): No - INTEGUMENTARY Hx Dermatological Problems: No - MUSCULOSKELETAL/RHEUMATOLOGICAL Hx Musculoskeletal Disorders: Yes Hx Arthritis: Yes Hx Falls: No Hx Gout: Yes - GASTROINTESTINAL Hx Gastrointestinal Disorders: No - GENITOURINARY/GYNECOLOGICAL Hx Genitourinary Disorders: Yes Hx Bladder Stone: Yes (RIGHT KIDNEY STONE) - PSYCHIATRIC Hx Psychophysiologic Disorder: Yes Hx Anxiety: Yes Hx Substance Use: No - SURGICAL HISTORY Hx Surgeries: Yes Hx Arthroscopy: Yes (RIGHT KNEE x2) Hx Joint Replacement: Yes (right hip) Hx Orthopedic Surgery: Yes (rt knee) Other/Comment: Ruptured right patella tendon - ANESTHESIA Hx Anesthesia: Yes Hx Anesthesia Reactions: No Hx Malignant Hyperthermia: No Meds Allergies/Adverse Reactions: Allergies Allergy/AdvReac Type Severity Reaction Status Date / Time codeine Allergy RASH Verified 07/15/17 14:44 Physical Exam - Constitutional Appears: Well, Non-toxic, No Acute Distress - Head Exam Head Exam: ATRAUMATIC, NORMAL INSPECTION, NORMOCEPHALIC - Eye Exam Eye Exam: EOMI, Normal appearance, PERRL Pupil Exam: NORMAL ACCOMODATION, PERRL - ENT Exam ENT Exam: Mucous Membranes Moist, Normal Exam - Neck Exam Neck exam: Positive for: Normal Inspection - Respiratory Exam Respiratory Exam: Clear to Auscultation Bilateral, NORMAL BREATHING PATTERN - Cardiovascular Exam Cardiovascular Exam: REGULAR RHYTHM, RRR, +S1, +S2 - GI/Abdominal Exam GI & Abdominal Exam: Normal Bowel Sounds, Soft. absent: Tenderness - Extremities Exam Extremities exam: Positive for: normal inspection - Back Exam Back exam: NORMAL INSPECTION - Neurological Exam Neurological exam: Alert, CN II-XII Intact, Normal Gait, Oriented x3, Reflexes Normal - Psychiatric Exam Psychiatric exam: Normal Affect, Normal Mood - Skin Skin Exam: Dry, Intact, Normal Color, Warm Additional comments: bruising noted to r hip area, dsg c/d/i Results - Vital Signs Recent Vital Signs: Last Vital Signs Temp 97.7 F 07/30/17 07:44 Pulse 92 H 07/30/17 07:44 Resp 20 07/30/17 07:44 BP 143/89 07/30/17 07:44 Pulse Ox 96 07/30/17 07:44 - Labs Result Diagrams: 07/30/17 05:40 07/30/17 05:40 Labs: Laboratory Results - last 24 hr 07/29/17 07/29/17 07/29/17 10:45 10:45 11:45 WBC 6.2 RBC 3.50 L Hgb 10.6 L Hct 32.3 L MCV 92.1 MCH 30.2 MCHC 32.7 L RDW 14.8 H Plt Count 419 H MPV 8.6 Neut % (Auto) 73.5 Lymph % (Auto) 15.4 L [place] % (Auto) 6.4 Eos % (Auto) 3.4 Baso % (Auto) 1.3 Neut # 4.6 Lymph # 1.0 [place] # 0.4 Eos # 0.2 Baso # 0.1 PT 11.9 INR 1.2 APTT 32.9 Sodium 144 Potassium 3.7 Chloride 105 Carbon Dioxide 27 Anion Gap 15 BUN 21 H Creatinine 1.2 Est GFR ( Amer) > 60 Est GFR (Non-Af Amer) > 60 Random Glucose 104 Calcium 9.1 Total Bilirubin 0.8 AST 22 ALT 27 Alkaline Phosphatase 68 Total Protein 6.5 Albumin 3.9 Globulin 2.7 Albumin/Globulin Ratio 1.4 07/30/17 07/30/17 05:40 05:40 WBC 6.6 RBC 3.57 L Hgb 10.8 L Hct 33.2 L MCV 92.9 MCH 30.3 MCHC 32.6 L RDW 14.7 H Plt Count 388 MPV 8.2 Neut % (Auto) 69.8 Lymph % (Auto) 19.4 L [place] % (Auto) 6.3 Eos % (Auto) 3.4 Baso % (Auto) 1.1 Neut # 4.6 Lymph # 1.3 [place] # 0.4 Eos # 0.2 Baso # 0.1 PT INR APTT Sodium 146 Potassium 3.5 L Chloride 107 Carbon Dioxide 25 Anion Gap 18 BUN 19 Creatinine 1.2 Est GFR ( Amer) > 60 Est GFR (Non-Af Amer) > 60 Random Glucose 94 Calcium 9.2 Total Bilirubin 0.7 AST 20 ALT 29 Alkaline Phosphatase 68 Total Protein 6.5 Albumin 3.7 Globulin 2.8 Albumin/Globulin Ratio 1.3 Assessment & Plan (1) DVT prophylaxis Assessment and Plan: scd sarai ehose asa hold anticoag for now ambulation Status: Acute (2) HTN (hypertension) Assessment and Plan: cont home meds micardis pt has been taking double dose, will monitor bp Status: Acute (3) Osteoarthritis of right hip Assessment and Plan: pain control ?? wound infection vs bruising /oozing from xarelto vanco/zosyn id/ortho consults Status: Acute Decision To Admit - Pt Status Changed To: Hospital Disposition Of: Inpatient - Admit Certification Admit to Inpatient:: After my assessment, the patient will require hospitalization for at least two midnights. This is because of the severity of symptoms shown, intensity of services needed, and/or the medical risk in this patient being treated as an outpatient. - . Bed Request Type: Med/Surg Admitting Physician: Malissa Urbina
[2017-07-30] MEDS: Multivitamin With Minerals Tab PO SCH (08:33)
[2017-07-30] MEDS ORDERED: TELMISARTAN PO SCH (09:00)
[2017-07-30] MEDS: [UNRECOGNIZED DRUG - OTHER] PO SCH (09:39)
[2017-07-30] MEDS: Patient's Own Med (Telmisartan [Micardis] 80 mg) PO SCH (09:44)
--- NOTE | 2017-07-30 12:11 | CARD ---
APPROVED REPORT EKG Measurement Heart [id number] <Conclusion> Atrial fibrillation Abnormal ECG
[2017-07-31] MEDS: Piperacillin/Tazobact 3.375 GM in Sodium Chloride 0.9% 100 ML IVPB SCH ×4 (05:00→21:04)
[2017-07-31] MEDS: Oxycodone/Acetaminophen 5/325 mg Tab PO PRN ×2 (06:52→16:33)
[2017-07-31 07:52] LABS: BASO % 0.3 % (0.0-2.0); EOS # 0.2 K/uL (0.0-0.7); EOS % 3.1 % (0.0-4.0); LYMPH # 1.3 K/uL (1.0-4.3); LYMPH % 21.5 % (20.0-40.0); MEAN CORPUSCULAR HEMOGLOBIN 29.4 pg (27.0-31.0); MEAN CORPUSCULAR HGB CONC 31.6 g/dL (33.0-37.0); MEAN PLATELET VOLUME 8.3 fl (7.2-11.7); MONO # 0.5 K/uL (0.0-0.8); MONO % 7.5 % (0.0-10.0); NEUT # 4.2 K/uL (1.8-7.0); NEUT % 67.6 % (50.0-75.0); NRBC % 0.1 % (0.0-0.0); RED CELL DISTRIBUTION WIDTH 14.9 % (11.5-14.5); WHITE BLOOD COUNT 6.3 K/uL (4.8-10.8)
[2017-07-31 08:06] LABS: ALB/GLOB RATIO 1.5 (1.0-2.1); ALKALINE PHOSPHATASE 66 U/L (38-126); ALT/SGPT 26 U/L (21-72); AST/SGOT 19 U/L (17-59); BILIRUBIN,TOTAL 0.8 mg/dl (0.2-1.3); BLOOD UREA NITROGEN 14 mg/dl (9-20); CALCIUM 9.6 mg/dL (8.4-10.2); CARBON DIOXIDE 23 mmol/L (22-30); CHLORIDE 108 mmol/L (98-107); GFR AFRICAN-AMERICAN > 60; GLUCOSE,RANDOM 105 mg/dL (75-110); POTASSIUM 3.5 MMOL/L (3.6-5.0); SODIUM 146 mmol/l (132-148); TOTAL PROTEIN 6.5 G/DL (6.3-8.2)
[2017-07-31] MEDS: Multivitamin With Minerals Tab PO SCH (09:25)
[2017-07-31] MEDS: Patient's Own Med (Telmisartan [Micardis] 80 mg) PO SCH (09:26)
[2017-07-31] MEDS: [UNRECOGNIZED DRUG - OTHER] PO SCH (09:27)
--- NOTE | 2017-07-31 12:47 | CP.PCM.PN ---
Subjective - Date & Time of Evaluation Date of Evaluation: 07/31/17 Time of Evaluation: 08:00 - Subjective Subjective: awake alert remains afebrile no further bleeding minimal serous drainage no pus or malodor Objective - Vital Signs/Intake and Output Vital Signs (last 24 hours): Temp Pulse Resp BP Pulse Ox 98.4 F 84 19 147/84 97 07/31/17 07:46 07/31/17 07:46 07/31/17 07:46 07/31/17 09:21 07/31/17 11:05 - Medications Medications: Current Medications Allopurinol (Zyloprim) 300 mg PO DAILY [facility] Last Admin: 07/31/17 09:24 Dose: 300 mg Alprazolam (Xanax) 1 mg PO HS PRN PRN Reason: Anxiety Amlodipine Besylate (Norvasc) 10 mg PO DAILY [facility] Last Admin: 07/31/17 09:21 Dose: 10 mg Aspirin (Aspirin) 325 mg PO DAILY [facility] Last Admin: 07/31/17 09:32 Dose: 325 mg Atorvastatin Calcium (Lipitor) 20 mg PO HS [facility] Last Admin: 07/30/17 21:19 Dose: 20 mg Celecoxib (Celebrex) 200 mg PO Q12 [facility] Last Admin: 07/31/17 09:24 Dose: 200 mg Docusate Sodium (Colace) 100 mg PO BID [facility] Last Admin: 07/31/17 09:25 Dose: 100 mg Home Med (Glucosa Felix 2kcl/Chondroitin Felix [Glucosamine & Chondroitin Cap]) 3 cap PO DAILY [facility] Last Admin: 07/31/17 09:27 Dose: Not Given Home Med (Telmisartan [Micardis]) 80 mg PO DAILY [facility] Last Admin: 07/31/17 09:26 Dose: 80 mg Vancomycin HCl 1 gm/ Sodium (Chloride) 250 mls @ 166.667 mls/hr IVPB Q12 [facility] Last Admin: 07/31/17 09:29 Dose: 166.667 mls/hr Piperacillin Sod/Tazobactam (Sod 3.375 gm/ Sodium Chloride) 100 mls @ 100 mls/ hr IVPB Q6 [facility] Last Admin: 07/31/17 09:28 Dose: 100 mls/hr Multivitamins/Minerals (Therapeutic-M Tab) 1 tab PO DAILY [facility] Last Admin: 07/31/17 09:25 Dose: 1 tab Oxycodone/Acetaminophen (Percocet 5/325 Mg Tab) 1 tab PO Q6H PRN PRN Reason: Pain, severe (8-10) Stop: 08/01/17 12:29 Last Admin: 07/31/17 06:52 Dose: 1 tab Tamsulosin HCl (Flomax) 0.4 mg PO HS [facility] Last Admin: 07/30/17 21:19 Dose: 0.4 mg - Labs Labs: 07/31/17 06:30 07/31/17 06:30 PT 11.9 Seconds (9.8-13.1) 07/29/17 10:45 INR 1.2 (0.9-1.2) 07/29/17 10:45 APTT 32.9 Seconds (25.6-37.1) 07/29/17 10:45 - Constitutional Appears: Non-toxic, Chronically Ill - Head Exam Head Exam: NORMOCEPHALIC - Eye Exam Eye Exam: PERRL. absent: Scleral icterus - ENT Exam ENT Exam: Mucous Membranes Dry, Normal External Ear Exam - Neck Exam Neck Exam: absent: Lymphadenopathy - Respiratory Exam Respiratory Exam: Decreased Breath Sounds - Cardiovascular Exam Cardiovascular Exam: REGULAR RHYTHM - GI/Abdominal Exam GI & Abdominal Exam: Distended, Soft. absent: Tenderness - Rectal Exam Rectal Exam: Deferred - Exam Exam: NORMAL INSPECTION - Extremities Exam Extremities Exam: Pedal Edema. absent: Calf Tenderness, Tenderness - Back Exam Back Exam: absent: CVA tenderness (L), CVA tenderness (R) - Neurological Exam Neurological Exam: Alert, Awake, CN II-XII Intact, Oriented x3 - Psychiatric Exam Psychiatric exam: Normal Mood - Skin Skin Exam: Dry Assessment and Plan (1) Wound dehiscence Status: Acute (2) HTN (hypertension) Status: Acute (3) Osteoarthritis of right hip Status: Acute - Assessment and Plan (Free Text) Assessment: Wound appears to be improving no pus no active bleeding Dr Gandhi to decide on washout bleeding / dehissence likely caused by incidental trauma / anticoagulation no gross evidence of infection at present
[2017-07-31] MEDS ORDERED: Potassium Chloride 20 mEq ER Tab PO ONE (17:16)
--- NOTE | 2017-07-31 19:25 | CP.PCM.PN ---
Subjective - Date & Time of Evaluation Date of Evaluation: 07/31/17 Time of Evaluation: 19:23 - Subjective Subjective: doing well, no complaints. no f/c, n/v/d. no dc from hip dsg c/d/i. as per ortho pt is not for surgery tomorrow. for dc tomorrow w/o anbx cs negative Objective - Vital Signs/Intake and Output Vital Signs (last 24 hours): Temp Pulse Resp BP Pulse Ox 98.4 F 103 H 18 148/79 96 07/31/17 16:24 07/31/17 16:24 07/31/17 16:24 07/31/17 16:24 07/31/17 16:24 - Medications Medications: Current Medications Allopurinol (Zyloprim) 300 mg PO DAILY [facility] Last Admin: 07/31/17 09:24 Dose: 300 mg Alprazolam (Xanax) 1 mg PO HS PRN PRN Reason: Anxiety Amlodipine Besylate (Norvasc) 10 mg PO DAILY [facility] Last Admin: 07/31/17 09:21 Dose: 10 mg Aspirin (Aspirin) 325 mg PO DAILY [facility] Last Admin: 07/31/17 09:32 Dose: 325 mg Atorvastatin Calcium (Lipitor) 20 mg PO HS [facility] Last Admin: 07/30/17 21:19 Dose: 20 mg Celecoxib (Celebrex) 200 mg PO Q12 [facility] Last Admin: 07/31/17 09:24 Dose: 200 mg Docusate Sodium (Colace) 100 mg PO BID [facility] Last Admin: 07/31/17 16:38 Dose: 100 mg Home Med (Glucosa Felix 2kcl/Chondroitin Felix [Glucosamine & Chondroitin Cap]) 3 cap PO DAILY [facility] Last Admin: 07/31/17 09:27 Dose: Not Given Home Med (Telmisartan [Micardis]) 80 mg PO DAILY [facility] Last Admin: 07/31/17 09:26 Dose: 80 mg Vancomycin HCl 1 gm/ Sodium (Chloride) 250 mls @ 166.667 mls/hr IVPB Q12 [facility] Last Admin: 07/31/17 09:29 Dose: 166.667 mls/hr Piperacillin Sod/Tazobactam (Sod 3.375 gm/ Sodium Chloride) 100 mls @ 100 mls/ hr IVPB Q6 [facility] Last Admin: 07/31/17 16:37 Dose: 100 mls/hr Multivitamins/Minerals (Therapeutic-M Tab) 1 tab PO DAILY [facility] Last Admin: 07/31/17 09:25 Dose: 1 tab Oxycodone/Acetaminophen (Percocet 5/325 Mg Tab) 1 tab PO Q6H PRN PRN Reason: Pain, severe (8-10) Stop: 08/01/17 12:29 Last Admin: 07/31/17 16:33 Dose: 1 tab Tamsulosin HCl (Flomax) 0.4 mg PO HS [facility] Last Admin: 07/30/17 21:19 Dose: 0.4 mg - Labs Labs: 07/31/17 06:30 07/31/17 06:30 PT 11.9 Seconds (9.8-13.1) 07/29/17 10:45 INR 1.2 (0.9-1.2) 07/29/17 10:45 APTT 32.9 Seconds (25.6-37.1) 07/29/17 10:45 - Constitutional Appears: Well, Non-toxic, No Acute Distress - Head Exam Head Exam: ATRAUMATIC, NORMAL INSPECTION, NORMOCEPHALIC - Eye Exam Eye Exam: EOMI, Normal appearance, PERRL Pupil Exam: NORMAL ACCOMODATION, PERRL - ENT Exam ENT Exam: Mucous Membranes Moist, Normal Exam - Neck Exam Neck Exam: Full ROM, Normal Inspection. absent: Lymphadenopathy - Respiratory Exam Respiratory Exam: Clear to Ausculation Bilateral, NORMAL BREATHING PATTERN - Cardiovascular Exam Cardiovascular Exam: REGULAR RHYTHM, RRR, +S1, +S2. absent: Murmur - GI/Abdominal Exam GI & Abdominal Exam: Soft, Normal Bowel Sounds. absent: Tenderness - Extremities Exam Extremities Exam: Full ROM, Normal Capillary Refill, Normal Inspection. absent : Joint Swelling, Pedal Edema - Back Exam Back Exam: NORMAL INSPECTION - Neurological Exam Neurological Exam: Alert, Awake, CN II-XII Intact, Normal Gait, Oriented x3 - Psychiatric Exam Psychiatric exam: Normal Affect, Normal Mood - Skin Skin Exam: Dry, Intact, Normal Color, Warm Assessment and Plan (1) DVT prophylaxis Status: Acute (2) HTN (hypertension) Status: Acute (3) Osteoarthritis of right hip Status: Acute - Assessment and Plan (Free Text) Assessment: (1) DVT prophylaxis Assessment and Plan: scd sarai ehose asa hold anticoag for now ambulation Status: Acute (2) HTN (hypertension) Assessment and Plan: cont home meds micardis pt has been taking double dose, will monitor bp Status: Acute (3) Osteoarthritis of right hip Assessment and Plan: pain control ?? wound infection vs bruising /oozing from xarelto vanco/zosyn id/ortho consults Status: Acute
[2017-08-01] MEDS: Piperacillin/Tazobact 3.375 GM in Sodium Chloride 0.9% 100 ML IVPB SCH ×2 (04:17→09:53)
--- NOTE | 2017-08-01 04:45 | PN ---
DATE: 07/31/2017 SUBJECTIVE: The patient is seen at bedside. He is comfortable. There is no wound drainage. Denies any fever. Denies any shortness of breath. VITAL SIGNS: The patient is afebrile. His temperature is 98.4 with heart rate of 84. Blood pressure is stable. LABORATORY DATA: From this morning, the white count is 6.3, hemoglobin of 10.7, hematocrit of 34.0. The incision is completely dry. There is no drainage on the surgical site. Neurovascularly intact distally. ASSESSMENT AND PLAN: A 62-year-old male with improved hematoma from the surgical site. Treatment once again explained to the patient. The patient is stable for discharge, I am not recommending at this time. I will speak to Infectious Disease doctor regarding antibiotic use and the patient will follow up in my office upon discharge on Tuesday. Gaye Gandhi MD
--- NOTE | 2017-08-01 07:26 | CP.PCM.PN ---
Subjective - Date & Time of Evaluation Date of Evaluation: 08/01/17 Time of Evaluation: 07:26 - Subjective Subjective: no complaints/distress. nof /c, n/v/d. for dc today wound w/o dc at present. pain controlled Objective - Vital Signs/Intake and Output Vital Signs (last 24 hours): Temp Pulse Resp BP Pulse Ox 98.2 F 78 19 137/99 H 96 08/01/17 00:12 08/01/17 00:12 08/01/17 00:12 08/01/17 00:12 08/01/17 00:12 - Medications Medications: Current Medications Allopurinol (Zyloprim) 300 mg PO DAILY [facility] Last Admin: 07/31/17 09:24 Dose: 300 mg Alprazolam (Xanax) 1 mg PO HS PRN PRN Reason: Anxiety Last Admin: 08/01/17 00:31 Dose: 1 mg Amlodipine Besylate (Norvasc) 10 mg PO DAILY [facility] Last Admin: 07/31/17 09:21 Dose: 10 mg Aspirin (Aspirin) 325 mg PO DAILY [facility] Last Admin: 07/31/17 09:32 Dose: 325 mg Atorvastatin Calcium (Lipitor) 20 mg PO HS [facility] Last Admin: 07/31/17 21:04 Dose: 20 mg Celecoxib (Celebrex) 200 mg PO Q12 [facility] Last Admin: 07/31/17 21:04 Dose: 200 mg Docusate Sodium (Colace) 100 mg PO BID [facility] Last Admin: 07/31/17 16:38 Dose: 100 mg Home Med (Glucosa Felix 2kcl/Chondroitin Felix [Glucosamine & Chondroitin Cap]) 3 cap PO DAILY [facility] Last Admin: 07/31/17 09:27 Dose: Not Given Home Med (Telmisartan [Micardis]) 80 mg PO DAILY [facility] Last Admin: 07/31/17 09:26 Dose: 80 mg Vancomycin HCl 1 gm/ Sodium (Chloride) 250 mls @ 166.667 mls/hr IVPB Q12 [facility] Last Admin: 07/31/17 20:44 Dose: Not Given Piperacillin Sod/Tazobactam (Sod 3.375 gm/ Sodium Chloride) 100 mls @ 100 mls/ hr IVPB Q6 [facility] Last Admin: 08/01/17 04:17 Dose: 100 mls/hr Multivitamins/Minerals (Therapeutic-M Tab) 1 tab PO DAILY [facility] Last Admin: 07/31/17 09:25 Dose: 1 tab Oxycodone/Acetaminophen (Percocet 5/325 Mg Tab) 1 tab PO Q6H PRN PRN Reason: Pain, severe (8-10) Stop: 08/01/17 12:29 Last Admin: 07/31/17 16:33 Dose: 1 tab Tamsulosin HCl (Flomax) 0.4 mg PO HS [facility] Last Admin: 07/31/17 21:04 Dose: 0.4 mg - Labs Labs: 07/31/17 06:30 07/31/17 06:30 PT 11.9 Seconds (9.8-13.1) 07/29/17 10:45 INR 1.2 (0.9-1.2) 07/29/17 10:45 APTT 32.9 Seconds (25.6-37.1) 07/29/17 10:45 - Constitutional Appears: Well, Non-toxic, No Acute Distress - Head Exam Head Exam: ATRAUMATIC, NORMAL INSPECTION, NORMOCEPHALIC - Eye Exam Eye Exam: EOMI, Normal appearance, PERRL Pupil Exam: NORMAL ACCOMODATION, PERRL - ENT Exam ENT Exam: Mucous Membranes Moist, Normal Exam - Neck Exam Neck Exam: Full ROM, Normal Inspection. absent: Lymphadenopathy - Respiratory Exam Respiratory Exam: Clear to Ausculation Bilateral, NORMAL BREATHING PATTERN - Cardiovascular Exam Cardiovascular Exam: REGULAR RHYTHM, RRR, +S1, +S2. absent: Murmur - GI/Abdominal Exam GI & Abdominal Exam: Soft, Normal Bowel Sounds. absent: Tenderness - Extremities Exam Extremities Exam: Full ROM, Normal Capillary Refill, Normal Inspection. absent : Joint Swelling, Pedal Edema - Back Exam Back Exam: NORMAL INSPECTION - Neurological Exam Neurological Exam: Alert, Awake, CN II-XII Intact, Normal Gait, Oriented x3 - Psychiatric Exam Psychiatric exam: Normal Affect, Normal Mood - Skin Skin Exam: Dry, Intact, Normal Color, Warm Additional comments: surg site c/d/i Assessment and Plan (1) DVT prophylaxis Status: Acute (2) HTN (hypertension) Status: Acute (3) Osteoarthritis of right hip Status: Acute - Assessment and Plan (Free Text) Assessment: (1) DVT prophylaxis Assessment and Plan: scd sarai ehose asa hold anticoag for now ambulation Status: Acute (2) HTN (hypertension) Assessment and Plan: cont home meds micardis pt has been taking double dose, will monitor bp Status: Acute (3) Osteoarthritis of right hip Assessment and Plan: pain control ?? wound infection vs bruising /oozing from xarelto-likely r/t xarelto, no need for surgical intervention as per ortho vanco/linhn id/ortho consults Status: Acute
[2017-08-01 08:52] VITALS: BP 156/99; PULSE 102; RESP 20; TEMP 97.8; O2SAT 97
--- NOTE | 2017-08-01 09:49 | PQF GENQUE ---
This form is a permanent part of the medical record 08/01/17 Mike Colorado APN, Please clarify the type of atrial fibrillation if known. H&P with pmh: atrial fibrillation noted. EKG: Atrial fibrillation. Clarification of your documentation is requested to better reflect the severity of illness and intensity of treatment of your patient. Indicators present [] Specify: [] [] Specify: [] [] Specify: [] [] Specify: [] Location in the medical record that reflects the above clinical findings: [] Treatment Provided: [] PHYSICIAN'S RESPONSE Please clarify the type of atrial fibrillation: [x] Chronic [] Paroxysmal [] Permanent [] Persistent [] Other (please specify type) [] Clinically unable to determine [] Unknown Based on your medical judgment of the clinical indicators outlined above please clarify the following: [] Practitioner response regular rate heard at times [] If unable to determine, please check the box, sign and date. Present On Admission (POA) Indicator: [x] Present at the time of admission [] Not present at the time of admission [] Clinically Undetermined In responding to this query, please exercise your independent professional judgment. The fact that a question is asked does not imply that any particular answer is desired or expected. Thank you for your clarification on this documentation. If you have any questions please call:ext [phone] * Thank you, Kerry Marie RN [facility]
[2017-08-01] MEDS: Multivitamin With Minerals Tab PO SCH (09:54)
[2017-08-01] MEDS: Patient's Own Med (Telmisartan [Micardis] 80 mg) PO SCH (09:54)
[2017-08-01] MEDS: [UNRECOGNIZED DRUG - OTHER] PO SCH (09:55)
--- NOTE | 2017-08-01 10:00 | PQF GENQUE ---
This form is a permanent part of the medical record 08/01/17 Mike Colorado APN, The attending physician is required to clarify documentation in the medical record. Please clarify which of the following diagnoses are ruled in or ruled out. ER MD: S/P Hip replacement on 07/12 and renate removed on 07/27/17. Patient states he is on Xarelto. Documentation of a half centimeter area of superior incision site that is dehisced and oozing dark blood..IMP: Wound Dehiscence. ID: Wound dehiscence. S/P Right hip arthroplasty with bleeding from incision on xarelto. No gross evidence of infection. Ortho: Improved hematoma from surgical site. H&P: Hematoma, ?? wound infection vs bruising/oozing from xarelto. Clarification of your documentation is requested to better reflect the severity of illness and intensity of treatment of your patient. Indicators present [] Specify: [] [] Specify: [] [] Specify: [] [] Specify: [] Location in the medical record that reflects the above clinical findings: [] Treatment Provided: [] PHYSICIAN'S RESPONSE Based on your medical judgment of the clinical indicators outlined above please clarify the following: [] Practitioner response no wound infection, oozing r/t anticoagulation/ hematoma [] If unable to determine, please check the box, sign and date. Present On Admission (POA) Indicator: [x] Present at the time of admission [] Not present at the time of admission [] Clinically Undetermined In responding to this query, please exercise your independent professional judgment. The fact that a question is asked does not imply that any particular answer is desired or expected. Thank you for your clarification on this documentation. If you have any questions please call:ext [phone] * Thank you, Kerry Marie RN [facility]
--- NOTE | 2017-08-01 13:20 | CP.PCM.DIS ---
Provider - Provider Date of Admission: 07/29/17 10:56 Attending physician: Malissa Urbina MD Time Spent in preparation of Discharge (in minutes): 15 Diagnosis - Discharge Diagnosis (1) DVT prophylaxis Status: Acute (2) HTN (hypertension) Status: Acute (3) Osteoarthritis of right hip Status: Acute Hospital Course - Lab Results Lab Results: Micro Results 07/29/17 10:45 Blood-Venous Blood Culture - Preliminary NO GROWTH AFTER 3 DAYS 07/29/17 11:00 Blood-Venous Blood Culture - Preliminary NO GROWTH AFTER 3 DAYS Most Recent Lab Values WBC 6.3 K/uL (4.8-10.8) 07/31/17 06:30 RBC 3.65 Mil/uL (4.40-5.90) L 07/31/17 06:30 Hgb 10.7 g/dL (12.0-18.0) L 07/31/17 06:30 Hct 34.0 % (35.0-51.0) L 07/31/17 06:30 MCV 93.0 fl (80.0-94.0) 07/31/17 06:30 MCH 29.4 pg (27.0-31.0) 07/31/17 06:30 MCHC 31.6 g/dL (33.0-37.0) L 07/31/17 06:30 RDW 14.9 % (11.5-14.5) H 07/31/17 06:30 Plt Count 361 K/uL (130-400) 07/31/17 06:30 MPV 8.3 fl (7.2-11.7) 07/31/17 06:30 Neut % (Auto) 67.6 % (50.0-75.0) 07/31/17 06:30 Lymph % (Auto) 21.5 % (20.0-40.0) 07/31/17 06:30 Bosque % (Auto) 7.5 % (0.0-10.0) 07/31/17 06:30 Eos % (Auto) 3.1 % (0.0-4.0) 07/31/17 06:30 Baso % (Auto) 0.3 % (0.0-2.0) 07/31/17 06:30 Neut # 4.2 K/uL (1.8-7.0) 07/31/17 06:30 Lymph # 1.3 K/uL (1.0-4.3) 07/31/17 06:30 Bosque # 0.5 K/uL (0.0-0.8) 07/31/17 06:30 Eos # 0.2 K/uL (0.0-0.7) 07/31/17 06:30 Baso # 0.0 K/uL (0.0-0.2) 07/31/17 06:30 PT 11.9 Seconds (9.8-13.1) 07/29/17 10:45 INR 1.2 (0.9-1.2) 07/29/17 10:45 APTT 32.9 Seconds (25.6-37.1) 07/29/17 10:45 Sodium 146 mmol/l (132-148) 07/31/17 06:30 Potassium 3.5 MMOL/L (3.6-5.0) L 07/31/17 06:30 Chloride 108 mmol/L (98-107) H 07/31/17 06:30 Carbon Dioxide 23 mmol/L (22-30) 07/31/17 06:30 Anion Gap 19 (10-20) 07/31/17 06:30 BUN 14 mg/dl (9-20) 07/31/17 06:30 Creatinine 1.1 mg/dL (0.8-1.5) 07/31/17 06:30 Est GFR ( Amer) > 60 07/31/17 06:30 Est GFR (Non-Af Amer) > 60 07/31/17 06:30 Random Glucose 105 mg/dL (75-110) 07/31/17 06:30 Calcium 9.6 mg/dL (8.4-10.2) 07/31/17 06:30 Total Bilirubin 0.8 mg/dl (0.2-1.3) 07/31/17 06:30 AST 19 U/L (17-59) 07/31/17 06:30 ALT 26 U/L (21-72) 07/31/17 06:30 Alkaline Phosphatase 66 U/L (38-126) 07/31/17 06:30 Total Protein 6.5 G/DL (6.3-8.2) 07/31/17 06:30 Albumin 3.9 g/dL (3.5-5.0) 07/31/17 06:30 Globulin 2.6 gm/dL (2.2-3.9) 07/31/17 06:30 Albumin/Globulin Ratio 1.5 (1.0-2.1) 07/31/17 06:30 Vancomycin Trough 20.0 ug/mL (5.0-10.0) H 07/31/17 15:00 Discharge Exam - Head Exam Head Exam: ATRAUMATIC, NORMAL INSPECTION, NORMOCEPHALIC Discharge Plan - Follow Up Plan Condition: STABLE Disposition: HOME/ ROUTINE Instructions: Aspirin (By mouth), Telmisartan (By mouth), Precautions after Total Joint Replacement Surgery (DC), Wound Dehiscence (DC) Additional Instructions: follow up with Dr Tucker on tuesday08/03/17- call for appointment final dx-wound hematoma, oozing r/t anticoag doign well, cleared by ortho no anbx per dr tucker f/u rmg 1 wk. rted prn, meds per med rec Referrals: Gaye Tucker MD [Staff Provider] - Mike Colorado, DNP, PROFESSIONAL SERVICES CONSULTANT [Advanced Practice Nurse] -
--- NOTE | 2017-08-02 09:02 | CON ---
DATE: 07/30/2017 HISTORY OF PRESENT ILLNESS: The patient is a 62-year-old male who is nearly 2 weeks status post right total hip replacement. The patient was seen by me on Tuesday in the office with wound drainage. In the office visit, the patient had a dark brown blood expressed in the superior part of the incision, which appeared to be a clotted hematoma and drainage. I had instructed the patient to admit himself to the Emergency Room at [facility] where he was admitted for labs and monitoring. The patient is seen today. He is comfortable. There is no drainage from the wound site and denies any fever or chills. Denies any paresthesia or motor weakness. No instability. REVIEW OF SYSTEMS: PHYSICAL EXAMINATION VITAL SIGNS: The patient is afebrile with temperature of 98.0, heart rate 92. LABORATORY DATA: White count is 6.6. At the examination of the incision site, the wound is closed and nothing can be expressed from the wound site. No erythema. Neurovascularly intact distally. ASSESSMENT: A 62-year-old male with resolving hematoma from the surgical site. TREATMENT: I had a detailed discussion with the patient explaining if patient's hematoma continues to subside, we will not take patient to the operating room for the irrigation and debridement. The patient agrees with the plan and we will continue to monitor the wound. Gaye Gandhi MD
== END 2017-08-01 12:13 | disposition home health service (06) | DRG 920 ==
LOC: H.ER 09:39 → H.ERHOLD 10:56 → H.MEDSURG1 18:11
PROVIDERS: ADMIT Family Medicine; ATTEND Family Medicine
DX: L76.32 Postprocedural hematoma of skin and subcutaneous tissue following other procedure (principal); T81.31XA Disruption of external operation (surgical) wound, not elsewhere classified, initial encounter; I48.2 Chronic atrial fibrillation; I12.9 Hypertensive chronic kidney disease with stage 1 through stage 4 chronic kidney disease, or unspecified chronic kidney disease; N18.9 Chronic kidney disease, unspecified; J44.9 Chronic obstructive pulmonary disease, unspecified; E78.00 Pure hypercholesterolemia, unspecified; M16.11 Unilateral primary osteoarthritis, right hip; Z96.641 Presence of right artificial hip joint; Y83.8 Other surgical procedures as the cause of abnormal reaction of the patient, or of later complication, without mention of misadventure at the time of the procedure; Z88.6 Allergy status to analgesic agent; Z79.01 Long term (current) use of anticoagulants; Z79.82 Long term (current) use of aspirin; Z87.891 Personal history of nicotine dependence; Z87.442 Personal history of urinary calculi; Y92.009 Unspecified place in unspecified non-institutional (private) residence as the place of occurrence of the external cause